=== PATIENT | male | born 1965 | race Caucasian/White ===

== ENCOUNTER 2021-02-22 10:49 | Outpatient (REF) | payer MEDICARE, MEDICAID, SELFPAY ==
[2021-02-22 13:45] LABS: MANUAL DIFF FLAG NO
[2021-02-22 14:09] LABS: Basophils Percent Auto 0.3 % (0-2); Eosinophils Absolute Auto 0.1 X10*3/uL (0.0-0.4); Eosinophils Percent Auto 1.2 % (0-4); Hemoglobin 16.3 g/dl (14.0-18.0); Imm Gran Abs Auto 0.02 X10*3/uL (0.00-0.03); Imm Gran Pct Auto 0.3 % (0.0-0.4); Lymphocytes Absolute Auto 2.2 X10*3/uL (1.2-4.9); Lymphocytes Percent Auto 32.2 % (20-40); Mean Corpuscular Hemoglobin 32.5 pg (27.0-33.0); Mean Corpuscular Volume 95.8 fL (80-98); Mean Platelet Volume 11.4 fL (9.4-12.4); Monocytes Absolute Auto 0.6 X10*3/uL (0.1-1.2); Neutrophils Absolute Auto 3.9 X10*3/uL (2.0-8.3); Platelet Count 202 X10*3/uL (160-400); Red Blood Count 5.01 X10*6/uL (4.60-5.80); Red Cell Distribution Width 11.9 % (11.0-16.0); White Blood Count 6.9 X10*3/uL (4.8-10.8)
[2021-02-22 14:34] LABS: Alanine Aminotransferase 24 U/L (0-40); Albumin Level 4.7 g/dL (3.5-5.0); Alkaline Phosphatase 85 U/L (39-117); Anion Gap 18 (12-20); Aspartate Amino Transferase 19 U/L (5-37); Bilirubin Total 0.7 mg/dL (0.0-1.0); Blood Urea Nitrogen 16 mg/dL (9-16); Calcium 9.1 mg/dL (8.4-10.2); Carbon Dioxide 30 mmol/L (22-29); Chloride 97 mmol/L (96-108); Cholesterol 142 mg/dL; Estimated Glomerular Filt Rate > 60; Glucose Fasting 88 mg/dL (60-99); HDL Cholesterol 46 mg/dL; LDL Cholesterol Calculated 65 mg/dl; Potassium 4.3 mmol/L (3.3-5.1); Sodium 141 mmol/L (135-145); Total Protein 7.8 g/dL (6.5-8.0); Triglycerides 159 mg/dL
== END 2021-02-22 10:50 | disposition home or self-care (01) ==
LOC: HO.HMGCLDS 10:49
PROVIDERS: PCP Internal Medicine; Visit Provider Internal Medicine
DX: I10 Essential (primary) hypertension (principal); E78.00 Pure hypercholesterolemia, unspecified; J45.909 Unspecified asthma, uncomplicated; Z12.5 Encounter for screening for malignant neoplasm of prostate
CPT/HCPCS: 36415; 80053; 80061; 84153; 85025

== ENCOUNTER → 2021-05-13 09:26 | Outpatient (REF) | payer MEDICARE, MEDICAID, SELFPAY ==
--- NOTE | 2021-05-13 09:32 | CA_ITS ---
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 The visually estimated ejection fraction is between 55-60%. - There is mild calcification of the aortic valve. Findings Left Ventricle Normal left ventricular cavity size. There is normal left ventricular wall thickness. The left ventricular systolic function is normal. The visually estimated ejection fraction is between 55-60%. There is no evidence of regional wall motion abnormalities. Diastolic function is normal for age. Right Ventricle Normal right ventricular cavity size and systolic function. Atria Both atria are normal in size. Aortic Valve The aortic valve structure and function is likely normal. There is mild calcification of the aortic valve. There is no aortic valve stenosis. There is no aortic valve regurgitation. Mitral Valve The mitral valve appears normal. There is trace mitral valve regurgitation. There is no mitral valve stenosis. Pulmonic Valve The pulmonic valve was not well visualized. Tricuspid Valve The tricuspid valve was not well visualized. There is trace tricuspid valve regurgitation. The pulmonary artery systolic pressure is normal. Great Vessels The asc aorta and aortic arch are normal in size. Venous The inferior vena cava is normal in size. Unable to assess respiratory variation. Pericardium/Pleural There is no evidence of pericardial effusion. Prior Study Comparison No significant change compared to prior study dated: 01/30/2012. Measurements 2D Linear Measurements IVSd: 0.95 0.6-0.9/0.6-1.0 cm LVIDd: 3.98 3.9-5.3/4.2-5.9 cm LVIDd Index: 2.06 2.4-3.2/2.2-3.1 cm/m2 LVIDs: 2.53 2.0-3.6 cm LVPWd: 0.99 0.7-1.1 cm Ao Root: 3.20 2.1-3.5 cm LA Diam: 3.20 2.7-3.8/3.0-4.0 cm LAIDs Index: 1.66 1.5-2.3 cm/m2 LV Mass: 149.33 67-162/88-224 g LV Mass Index: 77.37 43-95/49-115 g/m2 LVOT Diam: 2.00 3.0+(-)1.3 cm 2D Systolic Function EF 4C: 55.10 >55% EF 2C: 59.10 >55% EF BiP: 55.50 >55% Mitral Valve MV Pk E: 0.96 MV PK A: 0.90 MV Decel Time: 185.00 E/A: 1.10 E'Lateral: 10.80 E'Medial: 10.00 E/E' Med: 9.60 E/E' Lat: 8.90 PHT: 54.00 MVA PHT: 4.07 Decel Hutchinson: 5.19 Aortic Valve AoV Pk Lloyd: 1.41 AoV Mn Lloyd: 0.98 AoV VTI: 0.28 AoV Pk Grad: 8.00 Aov Mn Grad: 4.00 LILIBETH Cont.VTI: 2.07 LVOT LVOT Pk Lloyd: 1.03 LVOT Mn Lloyd: 0.63 LVOT VTI: 0.18 LVOT Pk Grad: 4.00 LVOT Mn Grad: 2.00 LVOT Diam: 2.00 LVOT Area: 3.14 Diastolic Function MV Pk E: 0.96 MV Pk A: 0.90 E/A: 1.10 E'Medial: 10.00 E/E' Med: 9.60 E' Laterial: 10.80 E/E' Lat: 8.90 Tricuspid Valve TR Pk Lloyd: 1.97 TR Pk Grad: 16.00 RA Press: 3.00 RVSP: 19.00 Great Vessels Aorta Ao Root-2D: 3.20 2.0-3.7 cm Ao Asc: 3.00 2.1-3.4 cm Ao Arch: 2.20 Updated in Other Vendor System with Status of Final Richie West MD electronically signed on 05/14/2021 3:25:25 PM with status of Final
== END ==
LOC: HO.CARD 09:26
PROVIDERS: Visit Provider Internal Medicine
DX: I10 Essential (primary) hypertension (principal)
CPT/HCPCS: 93306

== ENCOUNTER 2021-11-03 11:01 | Outpatient (REF) | payer MEDICARE, MEDICAID, SELFPAY ==
[2021-11-03 13:22] LABS: MANUAL DIFF FLAG NO
[2021-11-03 13:32] LABS: Basophils Percent Auto 0.2 % (0-2); Eosinophils Absolute Auto 0.1 X10*3/uL (0.0-0.4); Eosinophils Percent Auto 2.1 % (0-4); Hematocrit 46.7 % (42.0-52.0); Hemoglobin 15.8 g/dl (14.0-18.0); Imm Gran Abs Auto 0.02 X10*3/uL (0.00-0.03); Imm Gran Pct Auto 0.4 % (0.0-0.4); Lymphocytes Absolute Auto 1.5 X10*3/uL (1.2-4.9); Lymphocytes Percent Auto 27.9 % (20-40); Mean Corpuscular HGB Conc 33.8 g/dl (31.0-36.0); Mean Corpuscular Hemoglobin 31.8 pg (27.0-33.0); Mean Platelet Volume 11.3 fL (9.4-12.4); Monocytes Absolute Auto 0.6 X10*3/uL (0.1-1.2); Monocytes Percent Auto 10.8 % (2-11); Neutrophils Absolute Auto 3.1 x10*3/uL (2.0-8.3); Neutrophils Percent Auto 58.6 % (45-73); Platelet Count 214 X10*3/uL (160-400); Red Blood Count 4.97 X10*6/uL (4.60-5.80); White Blood Count 5.2 X10*3/uL (4.8-10.8)
[2021-11-03 13:52] LABS: Alanine Aminotransferase 28 U/L (0-40); Albumin Level 4.5 g/dL (3.5-5.0); Alkaline Phosphatase 81 U/L (39-117); Anion Gap 14 (12-20); Aspartate Amino Transferase 21 U/L (5-37); Bilirubin Total 0.6 mg/dL (0.0-1.0); Blood Urea Nitrogen 17 mg/dL (9-16); C Reactive Protein 0.32 mg/dL (< or = 0.50); Calcium 9.7 mg/dL (8.4-10.2); Carbon Dioxide 29 mmol/L (22-29); Chloride 99 mmol/L (96-108); Estimated Glomerular Filt Rate > 60; Glucose Fasting 97 mg/dL (60-99); Lipase 36 U/L (8-78); Potassium 4.9 mmol/L (3.3-5.1); Sodium 137 mmol/L (135-145); Total Protein 7.5 g/dL (6.5-8.0)
[2021-11-09 16:15] LABS: Transglutaminase Ab IgG <1.0 U/mL; Transglutaminase IgA <1.0 U/mL
== END 2021-11-03 11:02 | disposition home or self-care (01) ==
LOC: HO.10HDL 11:01
PROVIDERS: Visit Provider Internal Medicine
DX: R10.9 Unspecified abdominal pain (principal); R19.7 Diarrhea, unspecified; I10 Essential (primary) hypertension
CPT/HCPCS: 36415; 80053; 83516; 83690; 85025; 86140

== ENCOUNTER → 2021-12-23 11:37 | Outpatient (BNVA) | payer MEDICARE, MEDICAID, SELFPAY | PROVIDERS: PCP Internal Medicine; Referring Provider Internal Medicine; Visit Provider Nurse Practitioner | DX: K58.9 Irritable bowel syndrome, unspecified (principal); K21.9 Gastro-esophageal reflux disease without esophagitis; E66.01 Morbid (severe) obesity due to excess calories; Z68.32 Body mass index [BMI] 32.0-32.9, adult | CPT/HCPCS: 99202 ==

== ENCOUNTER → 2022-01-14 12:14 | Outpatient (BNVA) | payer MEDICARE, MEDICAID, SELFPAY | PROVIDERS: PCP Internal Medicine; Referring Provider Internal Medicine; Visit Provider Nurse Practitioner | DX: Z12.11 Encounter for screening for malignant neoplasm of colon (principal); K21.9 Gastro-esophageal reflux disease without esophagitis; K58.1 Irritable bowel syndrome with constipation; R62.50 Unspecified lack of expected normal physiological development in childhood | CPT/HCPCS: 99212 ==

== ENCOUNTER → 2022-02-18 11:18 | Outpatient (BNVA) | payer MEDICARE, MEDICAID, SELFPAY | PROVIDERS: PCP Internal Medicine; Referring Provider Internal Medicine; Visit Provider Nurse Practitioner | DX: K58.1 Irritable bowel syndrome with constipation (principal); K21.9 Gastro-esophageal reflux disease without esophagitis; E66.01 Morbid (severe) obesity due to excess calories; R62.50 Unspecified lack of expected normal physiological development in childhood; Z68.29 Body mass index [BMI] 29.0-29.9, adult | CPT/HCPCS: 99212 ==

== ENCOUNTER → 2022-04-01 10:37 | Outpatient (BNVA) | payer MEDICARE, MEDICAID, SELFPAY | PROVIDERS: PCP Internal Medicine; Referring Provider Internal Medicine; Visit Provider Nurse Practitioner | DX: K58.1 Irritable bowel syndrome with constipation (principal); K21.9 Gastro-esophageal reflux disease without esophagitis; E66.01 Morbid (severe) obesity due to excess calories; Z68.29 Body mass index [BMI] 29.0-29.9, adult | CPT/HCPCS: 99212 ==

== ENCOUNTER → 2022-05-12 14:36 | Outpatient (BNVA) | payer MEDICARE, MEDICAID, SELFPAY | PROVIDERS: PCP Internal Medicine; Visit Provider Nurse Practitioner | DX: K58.1 Irritable bowel syndrome with constipation (principal); E66.01 Morbid (severe) obesity due to excess calories; K21.9 Gastro-esophageal reflux disease without esophagitis | CPT/HCPCS: 99212 ==

== ENCOUNTER 2022-05-31 08:32 | Outpatient (REF) | payer MEDICARE, MEDICAID, SELFPAY ==
[2022-05-31 10:24] LABS: MANUAL DIFF FLAG NO
[2022-05-31 10:29] LABS: Basophils Percent Auto 0.3 % (0-2); Eosinophils Absolute Auto 0.1 X10*3/uL (0.0-0.4); Eosinophils Percent Auto 1.3 % (0-4); Hemoglobin 16.6 g/dl (14.0-18.0); Imm Gran Abs Auto 0.01 X10*3/uL (0.00-0.03); Imm Gran Pct Auto 0.2 % (0.0-0.4); Lymphocytes Absolute Auto 1.7 X10*3/uL (1.2-4.9); Lymphocytes Percent Auto 27.6 % (20-40); Mean Corpuscular HGB Conc 33.9 g/dl (31.0-36.0); Mean Corpuscular Hemoglobin 31.7 pg (27.0-33.0); Mean Corpuscular Volume 93.5 fL (80.0-98.0); Mean Platelet Volume 12.1 fL (9.4-12.4); Monocytes Absolute Auto 0.5 X10*3/uL (0.1-1.2); Monocytes Percent Auto 8.4 % (2-11); Neutrophils Absolute Auto 3.7 x10*3/uL (2.0-8.3); Neutrophils Percent Auto 62.2 % (45-73); Platelet Count 185 X10*3/uL (160-400); Red Blood Count 5.24 X10*6/uL (4.60-5.80); Red Cell Distribution Width 11.9 % (11.0-16.0)
[2022-05-31 10:50] LABS: Alanine Aminotransferase 17 U/L (0-40); Albumin Level 4.6 g/dL (3.5-5.0); Alkaline Phosphatase 133 U/L (39-117); Anion Gap 15 (12-20); Aspartate Amino Transferase 17 U/L (5-37); Bilirubin Total 0.5 mg/dL (0.0-1.0); Blood Urea Nitrogen 9 mg/dL (9-16); Calcium 9.1 mg/dL (8.4-10.2); Carbon Dioxide 28 mmol/L (22-29); Chloride 100 mmol/L (96-108); Cholesterol 142 mg/dL; Estimated Glomerular Filt Rate > 60; Glucose Fasting 92 mg/dL (60-99); HDL Cholesterol 44 mg/dL; LDL Cholesterol Calculated 68 mg/dl; Potassium 4.5 mmol/L (3.3-5.1); Sodium 138 mmol/L (135-145); Total Protein 7.7 g/dL (6.5-8.0); Triglycerides 153 mg/dL
== END 2022-05-31 08:33 | disposition home or self-care (01) ==
LOC: HO.10HDL 08:32
PROVIDERS: Visit Provider Internal Medicine
DX: Z12.5 Encounter for screening for malignant neoplasm of prostate (principal); K21.9 Gastro-esophageal reflux disease without esophagitis; E78.00 Pure hypercholesterolemia, unspecified; I10 Essential (primary) hypertension; K58.9 Irritable bowel syndrome, unspecified
CPT/HCPCS: 36415; 80053; 80061; 84153; 85025

== ENCOUNTER → 2022-06-21 14:26 | Outpatient (BNVA) | payer MEDICARE, MEDICAID, SELFPAY | PROVIDERS: PCP Internal Medicine; Visit Provider Nurse Practitioner | DX: K58.0 Irritable bowel syndrome with diarrhea (principal); K21.9 Gastro-esophageal reflux disease without esophagitis | CPT/HCPCS: 99212 ==

== ENCOUNTER → 2022-07-12 11:43 | Outpatient (BNVA) | payer MEDICARE, MEDICAID, SELFPAY | PROVIDERS: PCP Internal Medicine; Visit Provider Nurse Practitioner | DX: K58.0 Irritable bowel syndrome with diarrhea (principal); K21.9 Gastro-esophageal reflux disease without esophagitis | CPT/HCPCS: 99212 ==

== ENCOUNTER → 2022-08-05 13:29 | Outpatient (BNVA) | payer MEDICARE, MEDICAID, SELFPAY | PROVIDERS: PCP Internal Medicine; Visit Provider Nurse Practitioner | DX: K58.0 Irritable bowel syndrome with diarrhea (principal); K21.9 Gastro-esophageal reflux disease without esophagitis; R62.50 Unspecified lack of expected normal physiological development in childhood; E66.01 Morbid (severe) obesity due to excess calories; Z68.25 Body mass index [BMI] 25.0-25.9, adult | CPT/HCPCS: 99212 ==

== ENCOUNTER 2022-09-12 16:22 | Outpatient (REF) | payer MEDICARE, MEDICAID, SELFPAY ==
--- NOTE | ~2022-09-12 | XR_ITS ---
EXAMINATION: XR LUMBOSACRAL SPINE CLINICAL INFORMATION: Low back pain and sciatica COMPARISON: None TECHNIQUE: Three views of the lumbosacral spine. FINDINGS: There is mild curvature of the lower lumbar spine to the left. Bone alignment is otherwise normal. No fracture or dislocation. There is multilevel degenerative disc disease, greatest at L3-L4 and L4-L5. There is multilevel spondylosis greatest at L2-L3 and L4-L5. There is lower lumbar spine facet arthritis. XR/XR lumbar spine 2-3V IMPRESSION: Degenerative changes.
[2022-09-12 16:44] LABS: MANUAL DIFF FLAG NO
[2022-09-12 16:53] LABS: Basophils Percent Auto 0.4 % (0-2); Eosinophils Absolute Auto 0.1 X10*3/uL (0.0-0.4); Hematocrit 49.1 % (42.0-52.0); Hemoglobin 17.5 g/dl (14.0-18.0); Imm Gran Abs Auto 0.01 X10*3/uL (0.00-0.03); Imm Gran Pct Auto 0.1 % (0.0-0.4); Lymphocytes Absolute Auto 1.7 X10*3/uL (1.2-4.9); Lymphocytes Percent Auto 23.4 % (20-40); Mean Corpuscular HGB Conc 35.6 g/dl (31.0-36.0); Mean Corpuscular Hemoglobin 32.9 pg (27.0-33.0); Mean Corpuscular Volume 92.3 fL (80.0-98.0); Mean Platelet Volume 10.4 fL (9.4-12.4); Monocytes Absolute Auto 0.6 X10*3/uL (0.1-1.2); Monocytes Percent Auto 8.1 % (2-11); Neutrophils Absolute Auto 4.8 x10*3/uL (2.0-8.3); Platelet Count 247 X10*3/uL (160-400); Red Blood Count 5.32 X10*6/uL (4.60-5.80); White Blood Count 7.1 X10*3/uL (4.8-10.8)
[2022-09-12 17:18] LABS: Alanine Aminotransferase 13 U/L (0-40); Albumin Level 4.9 g/dL (3.5-5.0); Alkaline Phosphatase 119 U/L (39-117); Anion Gap 19 (12-20); Aspartate Amino Transferase 18 U/L (5-37); Bilirubin Total 0.4 mg/dL (0.0-1.0); Blood Urea Nitrogen 14 mg/dL (9-16); C Reactive Protein 0.24 mg/dL (< or = 0.50); Calcium 9.6 mg/dL (8.4-10.2); Carbon Dioxide 28 mmol/L (22-29); Chloride 97 mmol/L (96-108); Estimated Glomerular Filt Rate 60; Glucose Random 118 mg/dL (60-115); Potassium 4.3 mmol/L (3.3-5.1); Sodium 140 mmol/L (135-145)
[2022-09-12 17:39] LABS: Free T4 (Free Thyroxine) 0.94 ng/dL (0.71-1.85); Thyroid Stimulating Hormone 1.96 uIU/mL (0.32-4.0)
[2022-09-12 17:43] LABS: Vitamin B12 632 pg/mL (200-900)
== END 2022-09-12 16:23 | disposition home or self-care (01) ==
LOC: HO.LAB 16:22
PROVIDERS: PCP Internal Medicine; Visit Provider Internal Medicine
DX: I10 Essential (primary) hypertension (principal); J45.909 Unspecified asthma, uncomplicated; K21.9 Gastro-esophageal reflux disease without esophagitis; R53.1 Weakness
CPT/HCPCS: 36415; 72100; 80053; 82550; 82607; 84439; 84443; 85025; 86140

== ENCOUNTER → 2022-09-13 14:39 | Outpatient (BNVA) | payer MEDICARE, MEDICAID, SELFPAY | PROVIDERS: PCP Internal Medicine; Visit Provider Nurse Practitioner | DX: K58.0 Irritable bowel syndrome with diarrhea (principal); K21.9 Gastro-esophageal reflux disease without esophagitis; R62.50 Unspecified lack of expected normal physiological development in childhood | CPT/HCPCS: 99212 ==

== ENCOUNTER → 2022-11-09 13:57 | Outpatient (BNVA) | payer MEDICARE, MEDICAID, SELFPAY | PROVIDERS: PCP Internal Medicine; Visit Provider Nurse Practitioner | DX: K58.0 Irritable bowel syndrome with diarrhea (principal); K21.9 Gastro-esophageal reflux disease without esophagitis; R62.50 Unspecified lack of expected normal physiological development in childhood; Z79.899 Other long term (current) drug therapy | CPT/HCPCS: 99212 ==

== ENCOUNTER 2022-12-27 10:48 | Outpatient (REF) | payer MEDICARE, MEDICAID, SELFPAY ==
[2022-12-27 14:06] LABS: Estimated Average Glucose 108 mg/dL; Hemoglobin A1C 151.1896 umol/L; Hemoglobin A1c % 5.4 %
[2022-12-27 14:31] LABS: Anion Gap 16 (12-20); Blood Urea Nitrogen 12 mg/dL (9-16); Calcium 9.1 mg/dL (8.4-10.2); Carbon Dioxide 28 mmol/L (22-29); Chloride 98 mmol/L (96-108); Estimated Glomerular Filt Rate > 60; Glucose Random 92 mg/dL (60-115); Potassium 4.2 mmol/L (3.3-5.1); Sodium 138 mmol/L (135-145)
[2022-12-27 14:40] LABS: Free T4 (Free Thyroxine) 0.96 ng/dL (0.71-1.85)
== END 2022-12-27 10:49 | disposition home or self-care (01) ==
LOC: HO.10HDL 10:48
PROVIDERS: Visit Provider Internal Medicine
DX: I12.9 Hypertensive chronic kidney disease with stage 1 through stage 4 chronic kidney disease, or unspecified chronic kidney disease (principal); N18.9 Chronic kidney disease, unspecified; R73.03 Prediabetes; R25.1 Tremor, unspecified
CPT/HCPCS: 36415; 80048; 82550; 83036; 84439

== ENCOUNTER → 2023-02-09 14:29 | Outpatient (BNVA) | payer MEDICARE, MEDICAID, SELFPAY | PROVIDERS: PCP Internal Medicine; Visit Provider Nurse Practitioner | DX: K58.0 Irritable bowel syndrome with diarrhea (principal); K21.9 Gastro-esophageal reflux disease without esophagitis; Z79.899 Other long term (current) drug therapy | CPT/HCPCS: 99212 ==

== ENCOUNTER 2023-02-14 10:27 | Outpatient (REF) | payer MEDICARE, MEDICAID, SELFPAY ==
[2023-02-14 14:33] LABS: Folate 17.8 ng/mL (> or = 4.0); Thyroid Stimulating Hormone 1.73 uIU/mL (0.32-4.0); Vitamin B12 550 pg/mL (200-900)
[2023-02-17 15:18] LABS: Ceruloplasmin 20 mg/dL (18-36)
== END 2023-02-14 10:28 | disposition home or self-care (01) ==
LOC: HO.10HDL 10:27
PROVIDERS: Visit Provider Internal Medicine
DX: R25.1 Tremor, unspecified (principal)
CPT/HCPCS: 36415; 82390; 82607; 82746; 84443

== ENCOUNTER → 2023-03-09 14:58 | Outpatient (BNVA) | payer MEDICARE, MEDICAID, SELFPAY | PROVIDERS: PCP Internal Medicine; Visit Provider Nurse Practitioner | DX: G25.0 Essential tremor (principal); R62.50 Unspecified lack of expected normal physiological development in childhood; K58.0 Irritable bowel syndrome with diarrhea; K21.9 Gastro-esophageal reflux disease without esophagitis; E66.01 Morbid (severe) obesity due to excess calories; Z68.28 Body mass index [BMI] 28.0-28.9, adult | CPT/HCPCS: 99212 ==

== ENCOUNTER 2024-05-08 11:54 | Outpatient (REF) | payer MEDICARE, MEDICAID, SELFPAY ==
[2024-05-08 13:10] LABS: MANUAL DIFF FLAG NO
[2024-05-08 13:38] LABS: Basophils Percent Auto 0.4 % (0-2); Eosinophils Percent Auto 0.3 % (0-4); Hematocrit 45.9 % (42.0-52.0); Imm Gran Abs Auto 0.03 X10*3/uL (0.00-0.03); Imm Gran Pct Auto 0.4 % (0.0-0.4); Lymphocytes Absolute Auto 1.4 X10*3/uL (1.2-4.9); Lymphocytes Percent Auto 18.3 % (20-40); Mean Corpuscular HGB Conc 34.9 g/dl (31.0-36.0); Mean Corpuscular Hemoglobin 32.7 pg (27.0-33.0); Mean Corpuscular Volume 93.7 fL (80.0-98.0); Monocytes Absolute Auto 0.7 X10*3/uL (0.1-1.2); Monocytes Percent Auto 9.5 % (2-11); Neutrophils Absolute Auto 5.5 x10*3/uL (2.0-8.3); Neutrophils Percent Auto 71.1 % (45-73); Platelet Count 197 X10*3/uL (160-400); Red Cell Distribution Width 11.9 % (11.0-16.0); White Blood Count 7.8 X10*3/uL (4.8-10.8)
[2024-05-08 14:05] LABS: Anion Gap 14 (12-20); Blood Urea Nitrogen 18 mg/dL (9-16); C Reactive Protein 0.11 mg/dL (< or = 0.50); Calcium 9.6 mg/dL (8.4-10.2); Carbon Dioxide 28 mmol/L (22-29); Chloride 100 mmol/L (96-108); Estimated Glomerular Filt Rate > 60; Glucose Random 84 mg/dL (60-115); Magnesium 1.9 mg/dL (1.6-2.6); Potassium 4.7 mmol/L (3.3-5.1); Sodium 137 mmol/L (135-145)
[2024-05-08 14:10] LABS: Free T4 (Free Thyroxine) 0.95 ng/dL (0.71-1.85); Thyroid Stimulating Hormone 1.04 uIU/mL (0.32-4.0)
== END 2024-05-08 11:55 | disposition home or self-care (01) ==
LOC: HO.10HDL 11:54
PROVIDERS: Visit Provider Internal Medicine
DX: R00.2 Palpitations (principal); J45.909 Unspecified asthma, uncomplicated
CPT/HCPCS: 36415; 80048; 83735; 84439; 84443; 85025; 86140

== ENCOUNTER → 2024-05-15 09:10 | Outpatient (REF) | payer MEDICARE, MEDICAID, SELFPAY ==
--- NOTE | 2024-05-15 09:14 | HM_ITS ---
* Total monitoring time 3 days. * Underlying rhythm is sinus with an average rate of 89/Min. About 20% of the time, rate > 100/Min. * Frequent supraventricular ectopy with a burden of about 2%. * Rare ventricular ectopy. * No significant pauses or any high-grade AV blocks. * No patient markers or diary events. MTDD
== END ==
LOC: HO.CARD 09:10
PROVIDERS: PCP Internal Medicine; Visit Provider Internal Medicine
DX: R00.2 Palpitations (principal)
CPT/HCPCS: 93242

== ENCOUNTER → 2024-05-15 09:14 | Outpatient (BNV) | payer MEDICARE, MEDICAID, SELFPAY | PROVIDERS: PCP Internal Medicine; Visit Provider Internal Medicine | DX: I47.10 Supraventricular tachycardia, unspecified (principal) | CPT/HCPCS: 93244 ==

== ENCOUNTER 2024-08-23 09:24 | Outpatient (REF) | payer MEDICARE, MEDICAID, SELFPAY ==
[2024-08-23 09:56] LABS: MANUAL DIFF FLAG NO
[2024-08-23 10:20] LABS: Basophils Percent Auto 0.6 % (0-2); Eosinophils Absolute Auto 0.1 X10*3/uL (0.0-0.4); Eosinophils Percent Auto 1.3 % (0-4); Hematocrit 48.3 % (42.0-52.0); Hemoglobin 16.7 g/dl (14.0-18.0); Imm Gran Abs Auto 0.02 X10*3/uL (0.00-0.03); Imm Gran Pct Auto 0.4 % (0.0-0.4); Lymphocytes Absolute Auto 1.4 X10*3/uL (1.2-4.9); Lymphocytes Percent Auto 26.3 % (20-40); Mean Corpuscular HGB Conc 34.6 g/dl (31.0-36.0); Mean Corpuscular Hemoglobin 32.6 pg (27.0-33.0); Mean Corpuscular Volume 94.3 fL (80.0-98.0); Mean Platelet Volume 10.6 fL (9.4-12.4); Monocytes Absolute Auto 0.5 X10*3/uL (0.1-1.2); Monocytes Percent Auto 9.4 % (2-11); Neutrophils Absolute Auto 3.2 x10*3/uL (2.0-8.3); Platelet Count 212 X10*3/uL (160-400); Red Blood Count 5.12 X10*6/uL (4.60-5.80); White Blood Count 5.2 X10*3/uL (4.8-10.8)
[2024-08-23 11:31] LABS: Alanine Aminotransferase 17 U/L (0-40); Albumin Level 4.6 g/dL (3.5-5.0); Alkaline Phosphatase 92 U/L (39-117); Anion Gap 13 (12-20); Aspartate Amino Transferase 17 U/L (5-37); Bilirubin Total 0.7 mg/dL (0.0-1.0); Blood Urea Nitrogen 13 mg/dL (9-16); Calcium 9.5 mg/dL (8.4-10.2); Carbon Dioxide 30 mmol/L (22-29); Chloride 101 mmol/L (96-108); Cholesterol 201 mg/dL (<200); Estimated Glomerular Filt Rate > 60; Glucose Fasting 89 mg/dL (60-99); HDL Cholesterol 43 mg/dL (>40); LDL Cholesterol Calculated 104 mg/dL (<100); Potassium 4.8 mmol/L (3.3-5.1); Sodium 139 mmol/L (135-145); Total Protein 7.7 g/dL (6.5-8.0); Triglycerides 271 mg/dL (<150)
[2024-08-23 12:27] LABS: Prostate Specific Antigen 0.41 ng/mL (<0.05-4.0)
== END 2024-08-23 09:25 | disposition home or self-care (01) ==
LOC: HO.LAB 09:24
PROVIDERS: PCP Internal Medicine; Visit Provider Internal Medicine
DX: I10 Essential (primary) hypertension (principal); E78.00 Pure hypercholesterolemia, unspecified; Z12.5 Encounter for screening for malignant neoplasm of prostate; K21.9 Gastro-esophageal reflux disease without esophagitis; K63.5 Polyp of colon
CPT/HCPCS: 36415; 80053; 80061; 84153; 85025

== ENCOUNTER 2025-02-10 10:41 | Outpatient (AMB) | payer MEDICARE, MEDICAID, SELFPAY ==
--- NOTE | 2025-02-10 10:41 | A.OFFPC_ITS ---
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: No Accompanied by: Mother Allergies butalbital [From FIORINAL] Allergy (Unknown, Verified 02/10/25 10:42) SYNCOPE loratadine [From CLARITIN-D] Allergy (Unknown, Verified 02/10/25 10:42) SWELLING pseudoephedrine [From CLARITIN-D] Allergy (Unknown, Verified 02/10/25 10:42) SWELLING fiorinol Allergy (Unknown, Uncoded 02/10/25 10:42) Hives From SUDAFED Allergy (Unknown, Uncoded 02/10/25 10:42) HEART PALPITATIONS Sudafed OM Sinus Cold Allergy (Unknown, Uncoded 02/10/25 10:42) Anxiety Tobacco use date assessed: 02/10/25 Dental Screening Dental Screen Date: 02/10/25 Did you have a dental visit in the last 12 months?: Yes Did you have a dental problem in the last 6 months where you did not have access to dental care?: No PFSH Medical History IBS (irritable bowel syndrome) Surgical History H/O knee surgery H/O eye surgery Hx of tonsillectomy Family History Mother HTN (hypertension) Social History Household Members: None Housing: Apartment Alcohol intake: never Patient Tobacco Use Status: Never used Tobacco service: No Current occupational status: disabled Cognitive needs: Yes (special needs) Hearing needs: No Vision needs: Yes (rx glasses) Questionnaire PHQ-9 Over the last 2 weeks, how often have you been bothered by any of the following problems? 1. Little interest or pleasure in doing things: not at all 2. Feeling down, depressed, or hopeless: not at all 3. Trouble falling or staying asleep, or sleeping too much: not at all 4. Feeling tired or having little energy: not at all 5. Poor appetite or overeating: not at all 6. Feeling bad about yourself - or that you are a failure or have let yourself or your family down: not at all 7. Trouble concentrating on things, such as reading the newspaper or watching television: not at all 8. Moving or speaking so slowly that other people could have noticed. Or the opposite - being so fidgety or restless that you have been moving around a lot more than usual: not at all 9. Thoughts that you would be better off or of hurting yourself in some way: not at all Total score: 0 Source: Developed by Drs. Morris Marquez, Debi Casey, Israel Escobar and colleagues, with an educational tim from [employer]. Thrive Questionnaire Date Thrive assessed: 02/10/25 I am a: Patient What is your living situation today?: I have a steady place to live Within the past 12 months, did the food you bought not last and you didn't have the money to get more?: Never true Within the past 12 months, did you worry whether your food would run out before you got money to buy more?: Never true Do you have trouble paying for medicines?: No Do you have trouble getting transportation to medical appointments?: No Do you have trouble paying your heating and electricity bill?: No Do you have trouble taking care of your child, family member or friend?: No Do you have trouble with day-to-day activities such as bathing, preparing meals, shopping, managing finances, etc.?: No Are you currently unemployed and looking for a job?: No Are you interested in more education?: No THRIVE Score: 0 AUDIT C Alcohol Use Questionnaire (AUDIT-C) 1. How often do you have a drink containing alcohol?: Never 3. How often do you have six or more drinks on one occasion?: Never Total Score: 0 ADONAY-7 AMB Questionnaire ADONAY-7 Date ADONAY - 7 assessed: 02/10/25 Feeling nervous, anxious, or on edge: 0 = Not at all Not being able to stop or control worryin = Not at all Worrying too much about different things: 0 = Not at all Trouble relaxin = Not at all Being so restless that it is hard to sit still: 0 = Not at all Becoming easily annoyed or irritable: 0 = Not at all Feeling afraid as if something awful might happen: 0 = Not at all Total ADONAY-7 score (0-4 normal; 5-9 mild; 10-14 moderate; 15-21 severe): 0 Source: Developed by Drs. Morris Marquez, Debi Casey, Israel Escobar and colleagues, with an educational tim from [employer]. Physical exam (Primary Care) Vital Signs: Last Vital Signs Temp 97.6 F 02/10/25 10:44 Pulse 94 02/10/25 10:44 Resp 14 02/10/25 10:44 BP 132/80 02/10/25 10:44 Pulse Ox 98 02/10/25 10:44 Oxygen Delivery Method Room Air 02/10/25 10:44 BMI result Body Mass Index 31.2 Tobacco/Smoking Status: Tobacco use Status Tobacco use date assessed 02/10/25 02/10/25 10:44 Patient Tobacco Use Status Never used Tobacco 02/10/25 10:44 PHQ-9: PHQ-9 Score PHQ-9: Total score 0 02/10/25 10:44 Thrive Assessment: Date of Thrive Assessment Date Thrive assessed 02/10/25 02/10/25 10:44 Coding Level of Care Code Est Pt Level 4 (66062) Complex EM visit Add On G2211 Diagnoses HTN (hypertension), benign I10 GERD (gastroesophageal reflux disease) K21.9 Developmental delay, mild R62.50 Assessment & Plan Assessment & Plan (1) HTN (hypertension), benign: Code(s): I10 - Essential (primary) hypertension Category: Medical Plan: BP in range. Continue Lisinopril at same dosage. (2) GERD (gastroesophageal reflux disease): Code(s): K21.9 - Gastro-esophageal reflux disease without esophagitis Category: Medical Plan: Continue current medications (3) Developmental delay, mild: Code(s): R62.50 - Unspecified lack of expected normal physiological development in childhood Category: Medical Plan: Condition is stable Plan History of Present Illness The patient is a 59-year-old male presenting for a medication refill for essential hypertension, specifically lisinopril. His pharmacy experienced issues sending notifications for a refill to his previous physician, which has been unresolved until today's visit. There are no noted symptoms indicating poorly controlled hypertension, such as headaches or vision changes. The patient also presents with a need to assess his immunization status due to potential insufficiencies in his measles vaccination, supported by CDC guidelines which indicate vaccinations from 1390-5101 might be ineffective. This will be evaluated using serology. There is also a history of tremors, though there is no further elucidation of the frequency, severity, or impact on daily activities within this visit. 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 - Living Situation: Lives independently since 1980. - Smoking: Denies any smoking history. - Family: Second among five siblings who are in good health. - Function: She reports no issues in mobility or activities. Review of Systems - Neurological: Reports tremors - Respiratory: Denies smoking Physical Exam General: Appearance normal, both eyes and all related structures Nutritional Appearance: Well nourished Orientation/consciousness: Patient oriented x3 Limitations: No limitations Head: Normal to inspection Neck: Normal visual inspection Chest: Normal palpation of entire chest wall Respiratory: Normal respiratory effort Neurology: Patient oriented x3, has tremors Results Plan The management plan involves providing a lisinopril refill to ensure his essabraham tial hypertension is adequately controlled. The patient's licensing for measles, mumps, and rubella vaccination will be evaluated through blood work, and steps for a booster shot will be considered based on the results. The patient will continue independent living and a stable medication regimen, with no smoking history aiding in managing his hypertension. Patient was informed and verbally consented to the use of an ambient scribe for clinic note documentation during this visit. Discussion Notes I discussed with the patient and his mother the importance of maintaining adherence to his hypertension medication. The lisinopril prescription will be refilled today to resolve any interruptions in his care. To assess his immunization status, I explained the need for a blood test to determine immunity to measles, mumps, and rubella due to CDC guidelines about potential vaccination ineffectiveness. They understood that the results would inform the need for any further action regarding vaccinations. Follow-up instructions after receiving blood work results were provided. Patient Instructions - Ensure lisinopril prescription is refilled today. - Proceed to have blood drawn for MMR immunity testing. - Await call for results and further instructions regarding vaccinations. - Attend follow-up visit in six months. - Continue current living arrangements and work, maintaining independence. Orders: Orders Rubeola IgG (Measles) Today Z11.9 - Encounter for screening for infectious and parasitic diseases, unspecified Mumps Virus IgG Antibody Today Z11.9 - Encounter for screening for infectious and parasitic diseases, unspecified Complete Blood Count no Diff Today I10 - Essential (primary) hypertension, K21.9 - Gastro-esophageal reflux disease without esophagitis Basic Metabolic Panel Today I10 - Essential (primary) hypertension, K21.9 - Gastro-esophageal reflux disease without esophagitis Lipid Panel Today I10 - Essential (primary) hypertension, K21.9 - Gastro-e sophageal reflux disease without esophagitis Liver Panel Today I10 - Essential (primary) hypertension, K21.9 - Gastro- esophageal reflux disease without esophagitis UA and rflx microscopic Today I10 - Essential (primary) hypertension, K21.9 - Gastro-esophageal reflux disease without esophagitis Thyroid Stimulating Hormone Today I10 - Essential (primary) hypertension, K21.9 - Gastro-esophageal reflux disease without esophagitis Rubella IgG Antibody Today Z11.9 - Encounter for screening for infectious and parasitic diseases, unspecified
[2025-02-10 10:44] VITALS: BP 132/80; PULSE 94; RESP 14; TEMP 36.4; O2SAT 98; BMI 31.2
--- OUTSIDE RECORDS SUMMARY | 2025-02-10 12:12 | XMS_ITS ---
Author Organization [facility] Care Team Providers Care Application Developer Manager Name Role Phone Shay Carpio Unavailable Unavailable Stefano Zelaya Unavailable Unavailable Janeen Landrum Unavailable Unavailable Allergies and adverse reactions Code CodeSystem Substance Reaction Severity StartDate Concern Status 8896 RXNORM Sudafed Unknown 11/13/2023 active 8896 RXNORM Pseudoephedrine Unknown 11/13/2023 activ e Fiorinal Unknown 11/13/[id number] Eggs Unknown 11/13/2023 active Care Team Name Role Address Phone Organization Julien Carpio [address], [address], [place], [address], [place] (Office): : [facility] 11/13/2023 - 12/06/2023 Stefano Zelaya Attending Physician [address] [facility] [facility] [address], [place], [address], [place] (Office): : [facility] 11/13/2023 - 12/06/2023 Janeen Landrum Attending Physician [address] [facility] [address], [place], [address], [place] (Office): : [facility] 11/13/2023 - 12/06/2023 Immunizations Immunization Status Vaccine Details Vaccine Code CodeSystem Alberto e Notes (COVID-19) [id number] Updated Moderna Vaccine completed SARS-COV-2 (COVID-19) vaccine, mRNA, spike protein, LNP, preservative free, 50 mcg/0.5 mL dose 312 CVX created date: 12/01/2023 administered date: 09/08/2023 (COVID-19) Moderna Original Primary Dose Vaccine 1 of 2 completed SARS-COV-2 (COVID-19) vaccine, mRNA, spike protein, LNP, preservative free, 100 mcg/0.5mL dose or 50 mcg/0.25mL dose 207 CVX created date: 12/01/2023 administered date: 01/28/2021 (COVID-19) Moderna Original Booster Vaccine completed SARS-COV-2 (COVID-19) vaccine, mRNA, spike protein, LNP, preservative free, 100 mcg/0.5mL dose or 50 mcg/0.25mL dose 207 CVX created date: 12/01/2023 administered date: 04/12/2022 (COVID-19) Moderna Bivalent Vaccine completed SARS-COV-2 (COVID-19) vaccine, mRNA, spike protein, LNP, bivalent, preservative free, 50 mcg/0.5 mL or 25 mcg/0.25 mL dose 229 CVX created date: 12/01/2023 administered date: 09/27/2022 (COVID-19) Moderna Original Primary Dose Vaccine 2 of 2 completed SARS-COV-2 (COVID-19) vaccine, mRNA, spike protein, LNP, preservative free, 100 mcg/0.5mL dose or 50 mcg/0.25mL dose 207 CVX created date: 12/01/2023 administered date: 10/04/2021 Mental Status Section Date Assessment Total Score Description 12/06/2023 BIMS 11 moderate cognit karol impairment CAM 0 No delirium ind icated 11/17/2023 BIMS 11 moderate cognit karol impairment CAM 0 No delirium ind icated Problems Problem # Description Date of onset Resolved Date Code CodeSystem Concern Status 1 COGNITIVE COMMUNICATION DEFICIT 11/13/[address] active 2 DIZZINESS AND GIDDINESS 11/13/[address] active 3 DYSPHAGIA, OROPHARYNGEAL PHASE 11/13/[address] active 4 ESSENTIAL (PRIMARY) HYPERTENSION 11/13/[address] active 5 ESSENTIAL TREMOR 11/13/[address] active 6 GASTRO-ESOPHAGEAL REFLUX DISEASE WITHOUT ESOPHAGITIS 11/13/[address] active 7 GENERALIZED ANXIETY DISORDER 11/13/[address] active 8 MUSCLE WASTING AND ATROPHY, NOT ELSEWHERE CLASSIFIED, MULTIPLE SITES 11/13/[address] active 9 OTHER ASTHMA 11/13/[address] acti ve 10 PARKINSON'S DISEASE WITHOUT DYSKINESIA, WITHOUT MENTION OF FLUCTUATIONS 11/13/[address] active 11 UNSPECIFIED ABNORMALITIES OF GAIT AND MOBILITY 11/13/[address] active 12 UNSPECIFIED FALL, SUBSEQUENT ENCOUNTER 11/13/[address] active 13 UNSPECIFIED INTELLECTUAL DISABILITIES 11/13/[address] active 14 UNSPECIFIED LACK OF COORDINATION 11/13/[address] active Reason for Referral No Reasons for Referral Entered Social History Social History Observation Description Start Date End Date Code Code System Current Smoking Status Tobacco smoking consumption unknown 929724255 SNOMED CT Sex Assigned At Male 1965 84844-5 [facility] Vital Signs Code Code System Vitals Name Values and Units Timing Information 9279-1 [facility] Respiratory Rate Value=18.0 Units=/m in 12/06/2023 8462-4 [facility] Blood Pressure-Diastolic Value=82 Un its=mmHg 12/06/2023 8480-6 [facility] Blood Pressure-Systolic Jhbto=785 Un its=mmHg 12/06/2023 8310-5 [facility] Body Temperature Value=98.1 Units=?? F 12/06/2023 8867[facility]4 [facility] Heart rate Value=97.0 Units=/min 08/2024 81941-8 [facility] O2 % BldC Oximetry Value=96.0 Units= % 12/06/2023 89919-0 [facility] Pain Level Value=0.0 12/06/2023 83950-8 [facility] Weight Xtuda=306.6 Units=Lbs 06/2024 8302-2 LOINC Height Value=62.0 Units=Inches 11/14/2023
--- OUTSIDE RECORDS SUMMARY | 2025-02-10 12:12 | XMS_ITS | Clinical Summary ---
Author Organization [facility] ity Address [address] [place] [address] Care Team Providers Care Corporate Director Of Pharmacy Name Role Phone Unavailable Primary Care Provider Unavailabl e Social History Tobacco Use Types Packs/Day Years Used Date Smoking Tobacco: Never Assessed Sex and Gender Information Value Date Recorded Sex Assigned at Not on file Legal Sex Male 1:40 AM EST Gender Identity Not on file Sexual Orientation Not on file Plan of Treatment Health Maintenance Due Date Last Done Comments DTaP,Tdap,and Td Vaccines (1 - Tdap) 1983 Pneumococcal Vaccine: 50+ Ye ars (1 of 1 - PCV) 2014 Zoster Vaccines (1 of 2) 2014 COVID-19 Vaccine (1 - 2023-2 5 season) 2024 Influenza Vaccine (#1) 2024 RSV Immunization Patients 60 + Years Old (1 - 1-dose 75+ series) 2039 HIB Vaccines Aged Out No longer eligi ble based on patient's age to complete this topic HPV Vaccines Aged Out No longer eligi ble based on patient's age to complete this topic Hepatitis A Vaccines Aged Out No long er eligible based on patient's age to complete this topic Hepatitis B Vaccines Aged Out No long er eligible based on patient's age to complete this topic IPV Vaccines Aged Out No longer eligi ble based on patient's age to complete this topic MMR Vaccines Aged Out No longer eligi ble based on patient's age to complete this topic Meningococcal ACWY Vaccine Aged Out N o longer eligible based on patient's age to complete this topic Meningococcal B Vacine Aged Out No lo nger eligible based on patient's age to complete this topic Pneumococcal Vaccine: Pediat rics (0 to 5 Years) and At-Risk Patients (6 to 64 Years) Aged Out No longer eligible b ased on patient's age to complete this topic RSV Immunization Patients Un sydney 20 months Aged Out No longer eligible b ased on patient's age to complete this topic Varicella Vaccines Aged Out No longer eligible based on patient's age to complete this topic
== END 2025-02-10 11:16 | disposition home or self-care (01) ==
LOC: HO.HMCHD 10:41
PROVIDERS: PCP Internal Medicine; Visit Provider Internal Medicine
DX: I10 Essential (primary) hypertension (principal); K21.9 Gastro-esophageal reflux disease without esophagitis; R62.50 Unspecified lack of expected normal physiological development in childhood

== ENCOUNTER → 2025-02-10 10:41 | Outpatient (BNVA) | payer MEDICARE, MEDICAID, SELFPAY | PROVIDERS: PCP Internal Medicine; Visit Provider Internal Medicine | DX: I10 Essential (primary) hypertension (principal); K21.9 Gastro-esophageal reflux disease without esophagitis; R62.50 Unspecified lack of expected normal physiological development in childhood | CPT/HCPCS: 99212 ==

== ENCOUNTER 2025-02-14 08:09 | Outpatient (REF) | payer MEDICARE, MEDICAID, SELFPAY ==
[2025-02-14 10:25] LABS: Hematocrit 47.3 % (42.0-52.0); Hemoglobin 16.6 g/dl (14.0-18.0); Mean Corpuscular HGB Conc 35.1 g/dl (31.0-36.0); Mean Corpuscular Hemoglobin 32.9 pg (27.0-33.0); Mean Corpuscular Volume 93.7 fL (80.0-98.0); Mean Platelet Volume 11.4 fL (9.4-12.4); Platelet Count 196 X10*3/uL (160-400); Red Blood Count 5.05 X10*6/uL (4.60-5.80); Red Cell Distribution Width 12.4 % (11.0-16.0); White Blood Count 4.1 X10*3/uL (4.8-10.8)
[2025-02-14 10:40] LABS: Alanine Aminotransferase 21 U/L (0-40); Albumin Level 4.7 g/dL (3.5-5.0); Alkaline Phosphatase 93 U/L (39-117); Anion Gap 11 (12-20); Aspartate Amino Transferase 18 U/L (5-37); Bilirubin Direct 0.2 mg/dL (0.0-0.5); Bilirubin Total 0.7 mg/dL (0.0-1.0); Blood Urea Nitrogen 14 mg/dL (9-16); Calcium 9.2 mg/dL (8.4-10.2); Carbon Dioxide 29 mmol/L (22-29); Chloride 102 mmol/L (96-108); Cholesterol 155 mg/dL (<200); Estimated Glomerular Filt Rate > 60; Glucose Random 96 mg/dL (60-115); HDL Cholesterol 45 mg/dL (>40); LDL Cholesterol Calculated 75 mg/dL (<100); Potassium 4.2 mmol/L (3.3-5.1); Sodium 138 mmol/L (135-145); Total Protein 8.3 g/dL (6.5-8.0); Triglycerides 177 mg/dL (<150)
[2025-02-14 11:00] LABS: Thyroid Stimulating Hormone 1.83 uIU/mL (0.32-4.0)
[2025-02-14 11:02] LABS: Appearance Urine Clear; Color Urine Yellow; Glucose Urine UA Negative (Negative); Leukocyte Esterase Urine Negative (Negative); Nitrite Urine Negative (Negative); Urine Blood Negative (Negative); Urine Ketones Negative (Negative); Urine Protein Negative (Neg-Trace)
[2025-02-18 02:34] LABS: Rubella IgG Antibody 8.71 Index
[2025-02-19 03:32] LABS: Mumps Virus IgG Antibody >300.00 AU/mL
[2025-02-19 09:34] LABS: Rubeola IgG (Measles) <13.50 AU/mL
== END 2025-02-14 08:10 | disposition home or self-care (01) ==
LOC: HO.10HDL 08:09
PROVIDERS: Visit Provider Internal Medicine
DX: I10 Essential (primary) hypertension (principal); Z11.9 Encounter for screening for infectious and parasitic diseases, unspecified; K21.9 Gastro-esophageal reflux disease without esophagitis
CPT/HCPCS: 36415; 80048; 80061; 80076; 81003; 84443; 85027; 86735; 86762; 86765

== ENCOUNTER 2025-02-24 12:43 | Outpatient (AMB) | payer MEDICARE, MEDICAID, SELFPAY ==
--- NOTE | 2025-02-24 13:01 | AM.OFFVISNUR ---
Intake Visit Reasons: MMR Intake Note: Pt arrived for MMR vaccine Allergies butalbital [From FIORINAL] Allergy (Unknown, Verified 02/10/25 10:42) SYNCOPE loratadine [From CLARITIN-D] Allergy (Unknown, Verified 02/10/25 10:42) SWELLING pseudoephedrine [From CLARITIN-D] Allergy (Unknown, Verified 02/10/25 10:42) SWELLING fiorinol Allergy (Unknown, Uncoded 02/10/25 10:42) Hives From SUDAFED Allergy (Unknown, Uncoded 02/10/25 10:42) HEART PALPITATIONS Sudafed OM Sinus Cold Allergy (Unknown, Uncoded 02/10/25 10:42) Anxiety Immunizations M-M-R II (PF) 1,000-12,500 TCID50/0.5 mL subcutaneous solution Performing Provider: Hollis Woodard MD Performing Location: [facility] Administered by: Kenia Prieto RN on 02/24/25 13:10 Dose Route Admin Location Dispensed Lot Number Expiration Date [facility] Framing Consultant 0.5 mL subcut Left Arm 0.5 mL [id number] 01/08/26 3964-1134-66 [employer] & D VIS Given Date VIS Provided VIS Publication Date 02/24/25 Single Vaccine 21 Eligibility Eligibility Date Funding Source Not [facility] Eligible 02/24/25 Private Administration Comments: Diluent [id number] Exp [id number] Assessment & Plan Assessment & Plan Orders: Orders MMR Immunization Today Z23 - Encounter for immunization Medications: New M-M-R II (PF) (measles,mumps,rubella vacc(PF)) 0.5 mL subcut ONCE 1 ea 0RF NS Z23 - Encounter for immunization Coding
--- OUTSIDE RECORDS SUMMARY | 2025-02-24 14:20 | XMS_ITS | Clinical Summary ---
Author Organization [facility] ity Address [address] [place] [address] Care Team Providers Care Senior Construction Estimator Name Role Phone Unavailable Primary Care Provider [...]
== END 2025-02-24 13:53 | disposition home or self-care (01) ==
LOC: HO.HMCC 12:43
PROVIDERS: PCP Internal Medicine; Visit Provider Internal Medicine
DX: Z23 Encounter for immunization (principal)

== ENCOUNTER → 2025-02-24 12:43 | Outpatient (BNVA) | payer MEDICARE, MEDICAID, SELFPAY | PROVIDERS: PCP Internal Medicine; Visit Provider Internal Medicine | DX: Z23 Encounter for immunization (principal) | CPT/HCPCS: 90471; 90707 ==

== ENCOUNTER 2025-05-29 09:28 | Outpatient (REF) | payer MEDICARE, MEDICAID, SELFPAY ==
--- OUTSIDE RECORDS SUMMARY | 2025-05-29 09:48 | XMS_ITS | Clinical Summary ---
Author Organization [facility] ity Address [address] [place] [address] Care Team Providers Care Cake Icer And Packer Name Role Phone Unavailable Primary Care Provider [...] Vaccines (1 of 2) 2014 COVID-19 Vaccine ( - 2023-2 5 season) 2024 Influenza Vaccine (Season Ended) 2025 RSV Immunization Adult Patie nts (1 - 1-dose 75+ series) 2039 HIB [...] age to complete this topic Meningococcal B Vaccine Aged Out No l onger eligible based on patient's age to complete [...]
--- OUTSIDE RECORDS SUMMARY | 2025-05-29 09:48 | XMS_ITS | Data Portability ---
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 [email or web address] Not available 05/08/2025 14:30:52 Plan of Treatment Reminders Order Date Submit Date Provider Last Modified By Organization Details Last Modified Time Details Appointments None record ed. Lab None record ed. Referral None record ed. Procedures None record ed. Surgeries None record ed. Imaging None record ed. Medication Orders None record ed. Patient TargetsNo targets recorded. Patient InstructionsNo instructions recorded. Reason for Referral None Reported. Results Created Date Observation Date Name Description Value Unit Range Abnormal Flag Note LastModifiedBy Organization Detail LastModifiedTime 05/09/20 25 audio gram No observ ation record ed. BARCODE Not Available 2024 09:20:51 Result Notes None recorded. Problems Name Problem SNOMED Code Status Onset Date Resolution Date Notes Provider Name and Address Organization Details Recorded Time Dizziness and giddiness 493023072 Active 2024 JULIO CÉSAR Blackburn MD [address] [address], [place], [phone], [facility] - [facility] 14:52:04 Atrial fibrillation 54593224 Active 2024 JULIO CÉSAR Blackburn MD [address] [address], [place], [phone], [facility] 15:01:10 Sensorineural hearing loss of bilateral ears 637678976 Active 2024 JULIO CÉSAR Blackburn MD [address] [facility] [address], [place], [address], [facility] - [facility] 15:01:36 Problem Notes None recorded. Procedures Surgical History Date Name Laterality Status Provider Name and Address Organization Details Recorded Time 05/08/2025 Comp Audio with Tymps - 00358 & [id number] completed DOMINICK NEWMAN [place], CCC-A [address], [phone], [facility] - [facility] 05/08/2025 14:30:53 Imaging Results None recorded. Procedure Notes None recorded. Medical Equipment None Reported. Medications Name Sig Start Date Stop Date Status Note LastModified by Organization Details LastModified Time famotidine 40 mg tablet TAKE ONE TABLET BY MOUTH DAILY AT BEDTIME active Not Available Not Available No t Available simvastatin 10 mg tablet TAKE ONE TABLET BY MOUTH DAILY AT BEDTIME active Not Available Not Available No t Available fexofenadine 180 mg tablet TAKE ONE TABLET BY MOUTH EVERY DAY active Not Available Not Available No t Available lisinopril 5 mg tablet TAKE ONE TABLET BY MOUTH EVERY DAY active Not Available Not Available No t Available Advair HFA 230 mcg-21 mcg/actuation aerosol inhaler INHALE ONE PUFF BY MOUTH TWICE A DAY active Not Available Not Available No t Available Vitals None Recorded Social History None recorded. Functional Status None recorded. Mental Status None recorded. Family History Nothing Reported. Medical History No medical history recorded. Past Encounters Encounter ID Performer Location Encounter Start Date Encounter Closed Date Diagnosis/Indication Diagnosis SNOMED-CT Code Diagnosis ICD10 Code Diagnosis Note [id number] JULIO CÉSAR WILLETT MD [facility] [address] [place] [address] 05/08/2025 13:33:46 05/08/2025 15:03:59 Dizziness and giddiness 619366958 R42 Exam and Tc-Hallpi ke were normal. Audiogram showed symmetric sensorineu ral hearing loss. No sign of M ni re's disease on audiogram. No sign of obvious inner ear pathology. It is possible that his recent dizziness has more to do with his atrial fibrillati on which is newly diagnosed then an inner ear disorder. I recommend vestibular therapy and continued follow-up with cardiology . I would be glad to see him as needed. Atrial fibrillation 4943 6004 I48.91 f/u with cardiology Sensorineu ral hearing loss of bilateral ears 688374510 H90.3 gave clearance for hearing aids [id number] DOMINICK NEWMAN [place], [facility] [address] [place] [address] 05/08/2025 13:33:20 05/14/2025 10:36:03 Dizziness and giddiness [id number] R42 Audiologic al evaluation results: Right ear: Normal hearing sloping to a mild SNHL with excellent word recognitio n. Left ear: Normal hearing thru 2000Hz sloping to a mild SNHL with excellent word recognitio n. Tympanomet ry: Right Ear:Type As Left Ear:Type A Health Concerns Section Related Observation LastModified by Organization Detai ls LastModified Time None Recorded Concern Status LastModified by Organization Details LastModified Time None Recorded Advance Directives Directive None Recorded Payers Insurance Date Sequence Insurance Name Policy Number Policy Lopes Covered Member ID Lopes Member ID Guarantor Name 05/28/2025 1 [place] [employer] Colt Jovani Casillas [id number] Colt Casillas 05/28/2025 2 [place] [facility] Colt Hahn Vinny [id number] Colt Casillas Notes Date Note Type Note Provider Name and Address Organization Details Recorded Time 05/08/2025 text/html He has a history of room spinning vertigo. His dizziness comes and goes. It lasts for 20 minutes. Has tinnitus which comes and goes. Audio today showed normal sloping to moderate SNHL AU. He was recently hospitalized for Afib. He had a recent fall and is now in rehab. Last vertigo was a week ago. JULIO CÉSAR WILLETT MD [address], [phone], [facility] 05/08/2025 15:03:23 05/08/2025 text/html Dx Coby de Garcia Syndrome DOMINICK NEWMAN MA, CCC-A [address] [place] [address], [phone], [facility] - [facility] 05/08/2025 14:33:47
[2025-05-29 14:00] LABS: Thyroid Stimulating Hormone 1.53 uIU/mL (0.32-4.0)
[2025-05-29 14:05] LABS: Vitamin B12 385 pg/mL (200-900)
== END 2025-05-29 09:29 | disposition home or self-care (01) ==
LOC: HO.HMGCLDS 09:28
PROVIDERS: PCP Nurse Practitioner Family; Visit Provider Psychiatry & Neurology Neurology
DX: R20.0 Anesthesia of skin (principal)
CPT/HCPCS: 36415; 82607; 84443

== ENCOUNTER 2025-08-13 13:31 | Inpatient (IN) | payer MEDICARE, MEDICAID, SELFPAY ==
--- NOTE | 2025-08-13 | ECG_ITS ---
Test Reason : SYNCOPY Blood Pressure : */* mmHG Vent. Rate : 72 BPM Atrial Rate : 72 BPM P-R Int : 194 ms QRS Dur : 90 ms QT Int : 384 ms P-R-T Axes : 13 -40 -5 degrees QTcB Int : 420 ms Normal sinus rhythm Possible Left atrial enlargement Left axis deviation Abnormal ECG When compared with ECG of 25-Apr-2017 08:41, No significant change was found Referred By: Generic ED Physician Electronically Signed By: KHANH ARIZA
--- NOTE | ~2025-08-13 | CT_ITS ---
EXAMINATION: CT ABDOMEN AND PELVIS WITHOUT CONTRAST CLINICAL INFORMATION: Abdominal pain with rectal bleeding COMPARISON: None available. TECHNIQUE: Multidetector volumetric imaging was performed from the superior aspect of the liver through the pubic symphysis. Sagittal and coronal reformatted images were obtained on the technologist's workstation. This CT examination was performed using dose optimization techniques as appropriate, variously including the following: *Automated exposure control *Adjustment of mA and/or kV according to patient size (this includes techniques or standardized protocols for targeted exams where dose is matched to indication/reason for exam; i.e. extremities or head) *Use of iterative reconstruction technique DLP: 673 mGy*cm FINDINGS: LUNG BASES: Calcified bilateral hilar lymph nodes are present. The visualized lungs are clear. LIVER, GALLBLADDER, AND BILIARY TREE: The liver is normal in size, shape, and attenuation. No focal hepatic lesion or biliary ductal dilatation is present. The gallbladder is unremarkable with no evidence of radiopaque gallstones, gallbladder wall thickening, or obvious pericholecystic inflammatory changes. PANCREAS: Unremarkable. SPLEEN: Unremarkable. ADRENAL GLANDS: There is subtle nodularity of the left adrenal gland. KIDNEYS AND URETERS: There is mild perinephric stranding. There is a small exophytic simple cyst involving the posterior superior left kidney. No stones and no hydronephrosis is seen. BLADDER: Unremarkable. GASTROINTESTINAL TRACT: The small and large bowel are unremarkable. The appendix is unremarkable. ABDOMINAL WALL: Small indirect hernia containing fat is present on the left. LYMPH NODES: Normal. VASCULAR: Minimal atherosclerotic calcification is present in the distal common iliac arteries. PELVIC VISCERA: Unremarkable. OSSEOUS STRUCTURES: Multifocal degenerative changes are present in the lumbar spine with vacuum phenomena, disc space narrowing, endplate irregularities, and osteophytes. CT/CT abdomen pelvis wo IV con IMPRESSION: Changes from chronic granulomatous disease with bilateral hilar calcified lymph nodes. Nonspecific perinephric fat stranding. There is a small indirect hernia containing fat on the left. Degenerative disc disease and facet osteoarthritis. Fleischner guidelines were followed. Electronically signed by: Fernando Saab MD 08/13/2025 04:49 PM EDT
--- NOTE | ~2025-08-13 | US_ITS ---
EXAMINATION: BILATERAL CAROTID ULTRASOUND WITH DOPPLER HISTORY: syncope COMPARISON: There are no prior studies available for comparison. TECHNIQUE: Real time and Color and Spectral doppler ultrasonography of the carotid and vertebral arteries was performed in multiple planes. FINDINGS: No significant plaque is seen on the right. A small amount of plaque is seen in the left internal carotid artery. VERTEBRAL FLOW DIRECTION: Antegrade bilaterally. PEAK SYSTOLIC VELOCITIES (in cm/sec): RIGHT: CCA: Prox: 140 Dist: 71.3 ICA: Prox: 86.0 Mid: 91.4 Dist: 77.6 ICA/CCA Ratio: 0.6 ECA: 112 Peak ICA end diastolic velocity (EDV): 37.3 LEFT: CCA: Prox: 95.7 Dist: 104 ICA: Prox: 91.1 Mid: 73.6 Dist: 45.2 ICA/CCA Ratio: 0.9 ECA: 64.5 Peak ICA end diastolic velocity (EDV): 29.4 US/US carotid duplex BI IMPRESSION: Findings consistent with 0-49% stenosis of the bilateral internal carotid arteries. Electronically signed by: Morris Charles MD 08/14/2025 07:01 AM EDT
--- NOTE | ~2025-08-13 | XR_ITS ---
CLINICAL HISTORY: syncope 1 view chest x-ray Comparison: None provided Findings: Heart size is top-normal. Low lung volumes. Apparent mild interstitial prominence and mild haziness more so in the left lung. No significant pleural effusion or pneumothorax. No acute fracture. IMPRESSION: 1. Apparent mild interstitial prominence could be spurious due to technique and slight haziness, low-grade congestive heart failure not excluded. 2. Low lung volumes. This document has been electronically signed by: Mackenzie Clark MD on 08/13/2025 18:27:49
--- NOTE | ~2025-08-13 | CT_ITS ---
EXAMINATION: CT brain and CT cervical spine without contrast. CLINICAL INDICATION: Syncope and fall. COMPARISON: CT brain 04/26/2017. TECHNIQUE: 5 mm thin axial and reformatted 3 mm thin sagittal and coronal images of brain were obtained. Subsequently axial 3 mm thin and reformatted 2 minute thin sagittal and coronal images of cervical spine were obtained. DLP: 1773. This CT examination was performed using dose optimization techniques as appropriate, variously including the following: *Automated exposure control *Adjustment of mA and/or kV according to patient size (this includes techniques or standardized protocols for targeted exams where dose is matched to indication/reason for exam; i.e. extremities or head) *Use of iterative reconstruction technique. FINDINGS: Brain: There is no acute intra-axial, extra-axial bleed, masses or midline shift. There is no acute infarction in evolution. There is no edema. The [place]ak to white matter differentiation is maintained normal. The lateral ventricles are symmetrical in size and configuration without enlargement. No abnormality seen in the posterior fossa. Bone windows reveal no calvarial abnormality. There is no scalp soft tissue abnormality. There is mild mucoperiosteal thickening bilateral maxillary sinuses. Rest of ethmoid sinuses and mastoid air cells are well-aerated. No scalp soft tissue abnormality seen. Cervical spine: There is mild straightening of cervical lordosis. The vertebral heights and alignment is normal. There is moderate loss of C5-6, C6-C7, C7-T1 and T1-T2 disc heights with ventral and posterior spondylosis. The craniovertebral junction and the C1-C2 alignment is normal. There is no visible acute fracture, dislocation or subluxation seen. The prevertebral and paravertebral soft tissues are normal. The tracheal airway is widely patent. The lung apices are clear. Mild degenerative changes left TM joint are noted. CT/CT cervical spine wo IV con IMPRESSION: No acute intracranial process seen. There is no acute fracture, dislocation or subluxation seen in cervical spine. There is degenerative disc changes C5-6 through T1-T2 disc level Electronically signed by: Juan Perez MD 08/13/2025 04:37 PM EDT
[2025-08-13 13:38] VITALS: BP 120/90; PULSE 76; O2SAT 100
[2025-08-13 13:51] VITALS: BP 140/70; PULSE 70; RESP 16; TEMP 36.1; O2SAT 96; BMI 27.3
[2025-08-13 14:43] LABS: MANUAL DIFF FLAG NO
[2025-08-13 14:45] LABS: Hematocrit 46.0 % (42.0-52.0); Hemoglobin 16.0 g/dl (14.0-18.0); Imm Gran Abs Auto 0.02 X10*3/uL (0.00-0.03); Imm Gran Pct Auto 0.3 % (0.0-0.4); Lymphocytes Absolute Auto 1.1 X10*3/uL (1.2-4.9); Mean Corpuscular HGB Conc 34.8 g/dl (31.0-36.0); Mean Corpuscular Hemoglobin 32.1 pg (27.0-33.0); Mean Corpuscular Volume 92.4 fL (80.0-98.0); NRBC Abs Auto 0.000 X10*3/uL (0.0-0.012); NRBC Pct Auto 0.0 /100WBC (0.0-0.2); Platelet Count 239 X10*3/uL (160-400); Red Blood Count 4.98 X10*6/uL (4.60-5.80); White Blood Count 6.2 X10*3/uL (4.8-10.8)
[2025-08-13 15:02] LABS: Alanine Aminotransferase 15 U/L (0-40); Albumin Level 4.7 g/dL (3.5-5.0); Alkaline Phosphatase 93 U/L (39-117); Anion Gap 14 (12-20); Aspartate Amino Transferase 15 U/L (5-37); Blood Urea Nitrogen 14 mg/dL (9-16); Calcium 9.2 mg/dL (8.4-10.2); Carbon Dioxide 30 mmol/L (22-29); Chloride 101 mmol/L (96-108); Creatinine Clr Calc Pharmacy 46.4; Estimated Glomerular Filt Rate 56; Potassium 4.8 mmol/L (3.3-5.1); Sodium 140 mmol/L (135-145); Total Protein 7.6 g/dL (6.5-8.0)
--- NOTE | 2025-08-13 15:05 | ED.GENADULT ---
HPI - General Adult General Chief complaint: Syncope Stated complaint: fall, + sameer Time Seen by Provider: 08/13/25 15:07 Source: patient, family ( Older brother), EMS and old records reviewed Mode of arrival: EMS Limitations: no limitations History of Present Illness ED Provider: DR. Garrett HPI narrative: 60-year-old male history of mild developmental delay patient lives home independently by himself came in after had a syncopal episode in the morning patient stated that he passed out in the kitchen trying to get water to drink this morning, patient do not remember how he got on floor, patient also been complaining of mid abdominal pain x2 days, non off rectal bleed, no nausea, no vomiting, no fever, no chills. Related Data Home Medications ?Medication ?Instructions ?Recorded ?Confirmed albuterol sulfate 2.5 mg/3 mL 2.5 mg inhalation Q4-6H PRN 12/23/21 07/12/22 (0.083 %) solution for nebulization albuterol sulfate 90 mcg/actuation 2 puff inhalation Q6H PRN 12/23/21 07/12/22 aerosol inhaler (Ventolin HFA) fluticasone propionate 110 1 puff inhalation BID 12/23/21 02/09/23 mcg/actuation HFA aerosol inhaler (Flovent HFA) simvastatin 10 mg tablet 10 mg PO BEDTIME 12/23/21 02/09/23 acetaminophen 325 mg capsule 325 mg PO TID 07/12/22 02/09/23 fexofenadine 180 mg tablet 180 mg PO DAILY 07/12/22 02/09/23 (Naye Allergy) multivitamin 1 tab PO DAILY 08/05/22 02/09/23 Previous Rx's ?Medication ?Instructions ?Recorded famotidine 40 mg tablet 40 mg PO BEDTIME #30 tabs 12/18/23 lisinopril 5 mg tablet 5 mg PO DAILY #90 tabs 02/14/25 Allergies Allergy/AdvReac Type Severity Reaction Status Date / Time butalbital (From FIORINAL) Allergy Unknown SYNCOPE Verified 08/13/25 13:57 loratadine (From CLARITIN-D) Allergy Unknown SWELLING Verified 08/13/25 13:57 pseudoephedrine (From Allergy Unknown SWELLING Verified 08/13/25 13:57 CLARITIN-D) fiorinol Allergy Unknown Hives Uncoded 02/10/25 10:42 From SUDAFED Allergy Unknown HEART Uncoded 02/10/25 10:42 PALPITATIONS Sudafed OM Sinus Cold Allergy Unknown Anxiety Uncoded 02/10/25 10:42 Review of Systems Review of Systems: All other systems are reviewed and are negative Constitutional: Reports as per HPI and Reports no additional constitutional complaints Eyes: Reports as per HPI and Reports no additional eye complaints Reports system reviewed and no additional complaints, except as documented Cardiovascular: Reports as per HPI and Reports no additional cardiovascular complaints Respiratory: Reports as per HPI and Reports no additional respiratory complaints Gastrointestinal: Reports as per HPI and Reports no additional gastrointestinal complaints Genitourinary: Reports no additional female genitourinary complaints Musculoskeletal: Reports no additional musculoskeletal complaints Skin/Breast: Reports system reviewed and no additional complaints, except as docu Psychiatric: Reports no additional psychiatric complaints Endocrine: Reports no additional endocrine complaints Hematologic/Lymphatic: Reports no additional hematologic/lymphatic complaints Allergic/Immunologic: Reports no additional allergic/immunologic complaints Reports system reviewed and no additional complaints, except as documented and Reports Abnormal speech present [facility], [facility] Past Medical History Medical History IBS (irritable bowel syndrome) Surgical History History of colonoscopy (~05/01/23) H/O knee surgery H/O eye surgery Hx of tonsillectomy Family History Family History Mother HTN (hypertension) Social History Social History Household Members: None Housing: Apartment Alcohol intake: never Patient Tobacco Use Status: Never used Tobacco Advance Directives: No Advance Directives Information Provided: Yes Do you have a plan to hurt others: No Plan service: No Current occupational status: disabled Cognitive needs: Yes (special needs) Hearing needs: No Vision needs: Yes (rx glasses) Physical Exam ED Vital Signs: Vital Signs - 24 hr 08/13/25 13:51 08/13/25 15:51 Temperature 97.0 F Pulse Rate 70 78 Respiratory Rate 16 18 Blood Pressure 140/70 H 133/81 Pulse Oximetry 96 100 Oxygen Delivery Method Room Air Room Air BMI result Body Mass Index 27.3 Vital signs have been reviewed and appear to be correct. Blood pressure elevated. Heart rate normal. Respiratory rate normal. Temperature normal. Oxygen saturation normal. Appearance: Alert. Oriented X3. No acute distress. Head: Normal external exam. Normocephalic. Atraumatic. No Felipe signs noted. No raccoon eyes noted Eyes: PERRLA. EOMI. Conjunctiva and sclera normal. Eyelids normal. ENT: TM's Normal. Pharynx normal. Uvula midline. Moist mucous membranes. No trismus noted. No drooling noted. No muffled voice noted. Neck: Normal inspection. Neck supple. FROM. No adenopathy. Thyroid Normal. No meningeal signs. No neck mass noted. CVS: Normal heart rate and rhythm. Heart sound normal. No murmurs noted. Pulses normal throughout. Respiratory: No respiratory distress. Painless inspiration. Breath sounds normal. No wheezes/rales/rhonchi noted. Chest nontender. No accessory muscle usage noted or decreased air movement noted. Abdomen: Soft and nontender. Bowel sounds normal in all 4 quadrants. No distention noted. No organomegaly noted. No visible injury noted. Rectal exam: No hemorrhoid, brown stool, guaiac negative. Back: No CVA tenderness. Full range of motion noted. Skin: Skin warm and dry. Normal skin color. Normal skin turgor. No rashes/lesions/lacerations noted. Extremities: No lower extremity edema. Extremities exhibit normal range of motion. Extremities nontender. Neuro: Oriented X 3. Cranial nerve exam: II-XII are grossly intact No motor deficit. No sensory deficit. Reflexes normal. Course Reevaluation(s) Reevaluation #1: 1. syncope, no chest pain, no shortness of breath. Will admit for further syncopal workup. 2. Abdominal pain negative CT abdomen and pelvis. 3. Rectal bleed stable H&H stable vital signs rectal exam shows no blood in the stool. Time: 17:19 Medical Decision Making Differential Diagnosis Differential Diagnoses: The differential diagnosis associated with the presentation includes ( Rectal bleed, colitis, diverticulitis, hemorrhoid, syncope, ACS, SOB, dehydration, electrolyte derangement.) Admission/Observation Consideration of admission/observation: Escalation of care including admission/observation considered Consult Healthcare Provider Management of the patient was discussed with: Hospitalist (Dr. Beard) Lab Data MDM Lab Attestation statement: I reviewed the patient's lab results. 08/13/25 14:40 08/13/25 14:40 Labs: Lab Results 08/13/25 08/13/25 08/13/25 Range/Units 14:40 15:27 17:28 WBC 6.2 (4.8-10.8) X10*3/uL RBC 4.98 (4.60-5.80) X10*6/uL Hgb 16.0 (14.0-18.0) g/dl Hct 46.0 (42.0-52.0) % MCV 92.4 (80.0-98.0) fL MCH 32.1 (27.0-33.0) pg MCHC 34.8 (31.0-36.0) g/dl RDW 12.0 (11.0-16.0) % Plt Count 239 (160-400) X10*3/uL MPV 10.0 (9.4-12.4) fL Immature Gran % (Auto) 0.3 (0.0-0.4) % Neut % (Auto) 74.0 H (45-73) % Lymph % (Auto) 17.2 L (20-40) % Hawkins % (Auto) 7.6 (2-11) % Eos % (Auto) 0.6 (0-4) % Baso % (Auto) 0.3 (0-2) % Lymph # (Auto) 1.1 L (1.2-4.9) X10*3/uL Hawkins # (Auto) 0.5 (0.1-1.2) X10*3/uL Eos # (Auto) 0.0 (0.0-0.4) X10*3/uL Baso # (Auto) 0.0 (0.0-0.2) X10*3/uL Abs Immat Gran (auto) 0.02 (0.00-0.03) X10*3/uL Absolute Neuts (auto) 4.6 (2.0-8.3) x10*3/uL Absolute Nucleated RBC 0.000 (0.0-0.012) X10*3/uL Nucleated RBC % (auto) 0.0 (0.0-0.2) /100WBC Sodium 140 (135-145) mmol/L Potassium 4.8 (3.3-5.1) mmol/L Chloride 101 (96-108) mmol/L Carbon Dioxide 30 H (22-29) mmol/L Anion Gap 14 (12-20) BUN 14 (9-16) mg/dL Creatinine 1.31 (0.5-1.4) mg/dL Estim Creat Clear Calc 46.4 Estimated GFR 56 Random Glucose 112 (60-115) mg/dL Calcium 9.2 (8.4-10.2) mg/dL Total Bilirubin 0.5 (0.0-1.0) mg/dL AST 15 (5-37) U/L ALT 15 (0-40) U/L Alkaline Phosphatase 93 (39-117) U/L Troponin I High Sens < 2.7 (<3.5-35.0) ng/L Total Protein 7.6 (6.5-8.0) g/dL Albumin 4.7 (3.5-5.0) g/dL Urine Color Yellow Urine Appearance Clear Urine pH 7.5 (5.0-9.0) Ur Specific Richey 1.010 (1.005-1.025) Urine Protein Negative (Neg-Trace) mg/dL Urine Glucose (UA) Negative (Negative) mg/dL Urine Ketones Negative (Negative) mg/dL Urine Blood Negative (Negative) Urine Nitrite Negative (Negative) Ur Leukocyte Esterase Negative (Negative) Urine RBC 0-2 (0-2) /HPF Urine WBC 0-5 (0-5) /HPF Ur Squamous Epith Cells 0-2 (0-2) /HPF Urine Bacteria None Seen (None Seen) Hyaline Casts 0-2 (0-2) /LPF Stool Occult Blood NEGATIVE (NEGATIVE) Independent Interpretation I performed an independent interpretation of an: Plain X-Ray ( chest:1. Apparent mild interstitial prominence could be spurious due to technique and slight haziness, low-grade congestive heart failure not excluded. 2. Low lung volumes.) and CT Scan ( Head/C-spine / abdomen CT:o acute path) Radiology Impression Discussion of test interpretation with radiology: I have reviewed the radiologist's reading. Discharge Plan Discharge Clinical Impression: Syncope and collapse, Abdominal pain Patient Disposition: Admitted As Inpatient Print Language: Uzbek
[2025-08-13 15:39] LABS: OBS Int Ctl Valid YES; OBS1 NEGATIVE (NEGATIVE)
[2025-08-13 15:51] VITALS: BP 133/81; PULSE 78; RESP 18; O2SAT 100
[2025-08-13 16:06] LABS: Troponin-I High Sensitivity < 2.7 ng/L (<3.5-35.0)
[2025-08-13 17:36] LABS: Appearance Urine Clear; Glucose Urine UA Negative (Negative); PH 7.5 (5.0-9.0); Specific Gravity - Urine 1.010 (1.005-1.025)
[2025-08-13 18:46] VITALS: BP 118/78; PULSE 89; RESP 18; TEMP 36.9; O2SAT 96
--- NOTE | 2025-08-13 18:55 | PHA.MEDREC ---
Pharmacy Consult ? Medication Reconciliation Pharmacy has completed the medication reconciliation. Patient unaware of medications. Utilized claim history and medical record to complete med rec. Suzanna CaoD
--- NOTE | 2025-08-13 18:59 | PM.IMHP ---
History of Present Illness Date of Service: 08/13/25 Attending physician on admission: Lili Nash Chief Complaint: Syncope Pt is a 60 yo male with PMH vertigo, recent falls, palpitations, possible AFib with recent Holter monitor over the last month via [facility], developmental delay, hypertension, hyperlipidemia, essential tremor, COPD/asthma, GERD, IBS-D. anxiety is being seen in the emergency department status post an unwitnessed near syncopal or syncopal episode in patient's kitchen. Patient states earlier approximately 04:00 AM, patient felt a ?jolt x3 and experienced some anxiety and then was able to fall back to sleep. Patient does state he has a history of palpitations in the past. Patient explained that he would have rather gone to [facility] because in the past when he was here at [facility], he was complaining of belly pain but was discharged and placed in a wheelchair outside awaiting his ride back home. Patient became tearful explaining this. Patient is also complaining of diffuse abdominal pressure in the lower abdomen. Patient denied having any diarrhea earlier today and also no issues with constipation. Family offers that patient has been experiencing increasing anxiety to the level that patient appears to be in fight or flight most of the time. Patient [facility] a therapist at [facility] but does not have psychiatric care. Patient does not currently take any SSRIs or psychiatric medications. Incidentally patient's mother also being seen in the emergency department now being discharged was able to provide more information regarding events from earlier today. Patient had gone out to breakfast with a caregiver and upon arrival to the restaurant, patient stated he had to run to the bathroom. Patient returned and was able to have breakfast. Upon return to his apartment where patient lives alone, patient stated he had to run to the bathroom again. Patient's mother states it may have been diarrhea with hx of IBS-D. Later in the day, whilein the kitchen obtaining a glass of water, patient felt dizzy and stated he passed out. Patient has no idea how long he was ?passed out? for. Patient was then able to call his mother via cell phone. Pt's mother arrived and found the patient lying on his back with his hands behind his head. Patient was not responding verbally but when his watch dinged with a message, patient lifted his arm and looked at the watch and read the message. Patient's mother then called 911 because she could not help pt up off the floor. Patient has no history of seizures and was just seen by a neurologist yesterday for essential tremor and previous abnormal finding involving the C-spine. Patient was cleared by the neurologist and had no new diagnoses at the end of the visit. Patient has been at [facility] at least 3 times over the last 3 months for fall related issues. Patient has been wearing a Holter monitor in total for the last 4 weeks. Family were told that patient had evidence of AFib but was not started on an anticoagulant. Patient was started on metoprolol. 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 Records have been requested from [facility]. Patient has had history of Holter monitor back in April of 2024 and there was a short 7 beat run of SVT, max rate 142 but no evidence of AFib or other arrhythmias. Last echo was from 2020 and noted in the EF of 55-60% with normal diastolic function for patient's age. There was no valvular disease noted as well. There was no murmur on exam. Workup in the ED identified no acute findings on head CT and cervical spine CT. Patient does have degenerative disc disease involving C5 and C6 and T1 through T2. In addition chest x-ray negative for obvious acute findings including pneumonia, pulmonary edema or pleural effusion, but does indicate a mild interstitial prominence that could possibly be spurious due to technique, slight haziness or low-grade congestive heart failure. Patient has no leukocytosis, no fever and hemodynamics are stable. CO2 30 on BNP and magnesium and BNP are pending. Troponin negative. EKG NSR, possible left atrial enlargement with left axis deviation and a QTC of 420. CT scan of the abdomen and pelvis were negative for any acute findings. Stool panel has been sent and is pending. Please note that patient's mother is elderly and she appears to be the primary caregiver with siblings present that help when they can. Family has been considering that patient can no longer live alone and is looking into a Pace program known as [employer]. They are also looking into other living arrangements including an apartment complex that is affiliated with sister's joel Wall in connection with the pace program on the same [place] in [place]. Patient states he continues to work at [employer] in the [place] part-time. Review of Systems Review of Systems: Patient currently denies any chest pain or shortness of breath at rest. Patient states he does have that diffuse sensation in his belly which is nonspecific. Patient currently denies any diarrhea or constipation but family reported that he had to episodes earlier today of having to run to the bathroom for for a bowel movement that may have been diarrhea. Patient denies any headache or visual changes at this time. Patient is very emotional and anxious in general regarding his health issues and need for admission. Yes all other systems are reviewed and are negative [facility] Medical History Essential tremor Vertigo Falls Asthma Developmental delay, mild Irritable bowel syndrome with diarrhea GERD (gastroesophageal reflux disease) Morbid obesity Anxiety Hypertension IBS (irritable bowel syndrome) Cognitive capacity: Alert and orientated x3 Functional capacity: independent ambulation Family History Mother HTN (hypertension) Surgical History History of colonoscopy (~05/01/23) H/O knee surgery H/O eye surgery Hx of tonsillectomy Social History Household Members: None Housing: House Alcohol intake: never Patient Tobacco Use Status: Never used Tobacco Currently Displaying Signs/Symptoms of Drug Intoxication Withdrawal: No Have you been hit, kicked, punched, or otherwise hurt by someone within the past year? If so, by whom?: No Advance Directives: No Advance Directives Information Provided: Yes Do you have a plan to hurt others: No Plan Recently lost weight without trying: Unsure service: No Current occupational status: disabled Cognitive needs: Yes (special needs) Hearing needs: No Vision needs: Yes (rx glasses) Ebola Risk: Travel/Contact With Anyone From Affected Area/s: No Has Patient Experienced Ebola Symptoms: No Meds Allergies Allergy/AdvReac Type Severity Reaction Status Date / Time butalbital (From FIORINAL) Allergy Unknown SYNCOPE Verified 08/13/25 13:57 loratadine (From CLARITIN-D) Allergy Unknown SWELLING Verified 08/13/25 13:57 pseudoephedrine (From Allergy Unknown SWELLING Verified 08/13/25 13:57 CLARITIN-D) fiorinol Allergy Unknown Hives Uncoded 02/10/25 10:42 From SUDAFED Allergy Unknown HEART Uncoded 02/10/25 10:42 PALPITATIONS Sudafed OM Sinus Cold Allergy Unknown Anxiety Uncoded 02/10/25 10:42 Home Medications ?Medication ?Instructions ?Recorded ?Confirmed ?Last Taken ?Type albuterol sulfate 2.5 mg/3 mL 2.5 mg inhalation Q4-6H PRN 12/23/21 08/13/25 Unknown History (0.083 %) solution for nebulization Shortness Of Breath Or Wheezing albuterol sulfate 90 mcg/actuation 2 puff inhalation Q6H PRN 12/23/21 08/13/25 Unknown History aerosol inhaler (Ventolin HFA) Shortness Of Breath Or Wheezing simvastatin 10 mg tablet 10 mg PO BEDTIME 12/23/21 08/13/25 Unknown History fexofenadine 180 mg tablet 180 mg PO DAILY 07/12/22 08/13/25 Unknown History (Naye Allergy) fluticasone propionate 230 2 puff inhalation BID 08/13/25 08/13/25 Unknown History mcg-salmeterol 21 mcg/actuation HFA inhaler (Advair HFA) metoprolol tartrate 50 mg tablet 50 mg PO BID 08/13/25 08/13/25 Unknown History Physical Exam Vital Signs and Narrative: Vital Signs: Last Vital Signs Temp 98.4 F 08/13/25 18:46 Pulse 89 08/13/25 18:46 Resp 18 08/13/25 18:46 BP 118/78 08/13/25 18:46 Pulse Ox 96 08/13/25 18:46 O2 Del Method Room Air 08/13/25 18:46 BMI result Body Mass Index 27.3 Alert and orientated X3, able to answer questions asked and follow commands. Neuro: CN II-X11 intact, no deficits, visual acuity intact EYES: PERRLA, EOM intact, sclerae nonicteric ENT: hearing intact, no issues with swallowing, uvula midline, lips moist, nares patent no epistaxis Cardiac: S1 S2 RRR, no murmur, no JVD, no edema in Lower ext Pulmonary: lungs diminished bilaterally Abdominal: BS active in all 4 quadrants, no guarding, tenderness, rebounding, mild distention MSK: strength 4/5 upper and lower extremities : no CVA tenderness no bladder distension Extremities: no edema in lower extremities, PT and DP pulses palpable +2 Psych: mood anxious, judgement and insight fair Skin: No new lesions or rashes Results Labs 08/13/25 14:40 08/13/25 14:40 Labs: Laboratory Results - last 24 hr 08/13/25 08/13/25 08/13/25 14:40 15:27 17:28 MCV 92.4 MCH 32.1 MCHC 34.8 RDW 12.0 Plt Count 239 MPV 10.0 Immature Gran % (Auto) 0.3 Neut % (Auto) 74.0 H Lymph % (Auto) 17.2 L [place] % (Auto) 7.6 Eos % (Auto) 0.6 Baso % (Auto) 0.3 Lymph # (Auto) 1.1 L [place] # (Auto) 0.5 Eos # (Auto) 0.0 Baso # (Auto) 0.0 Abs Immat Gran (auto) 0.02 Absolute Neuts (auto) 4.6 Absolute Nucleated RBC 0.000 Nucleated RBC % (auto) 0.0 Anion Gap 14 Estim Creat Clear Calc 46.4 Estimated GFR 56 Random Glucose 112 Calcium 9.2 Total Bilirubin 0.5 AST 15 ALT 15 Alkaline Phosphatase 93 Troponin I High Sens < 2.7 Total Protein 7.6 Albumin 4.7 Urine Color Yellow Urine Appearance Clear Urine pH 7.5 Ur Specific [place] 1.010 Urine Protein Negative Urine Glucose (UA) Negative Urine Ketones Negative Urine Blood Negative Urine Nitrite Negative Ur Leukocyte Esterase Negative Urine RBC 0-2 Urine WBC 0-5 Ur Squamous Epith Cells 0-2 Urine Bacteria None Seen Hyaline Casts 0-2 Stool Occult Blood NEGATIVE ECG Attestation: I personally reviewed and interpreted this ECG as follows: (Normal sinus rhythm, left atrial enlargement normal QTC) Prior ECG tracings: available for review Imaging Radiologist's Impressions: Impressions Abdomen/Pelvis CT 08/13/25 15:45 IMPRESSION: Changes from chronic granulomatous disease with bilateral hilar calcified lymph nodes. Nonspecific perinephric fat stranding. There is a small indirect hernia containing fat on the left. Degenerative disc disease and facet osteoarthritis. Fleischner guidelines were followed. Electronically signed by: Fernando Saab MD 08/13/2025 04:49 PM EDT RP Cervical Spine CT 08/13/25 15:45 IMPRESSION: No acute intracranial process seen. There is no acute fracture, dislocation or subluxation seen in cervical spine. There is degenerative disc changes C5-6 through T1-T2 disc level Electronically signed by: Juan Perez MD 08/13/2025 04:37 PM EDT RP Head CT 08/13/25 15:45 IMPRESSION: No acute intracranial process seen. There is no acute fracture, dislocation or subluxation seen in cervical spine. There is degenerative disc changes C5-6 through T1-T2 disc level Electronically signed by: Juan Perez MD 08/13/2025 04:37 PM EDT RP Assessment and Plan (1) Syncope and collapse: Status: Acute Plan Pt is a 60 yo male with PMH vertigo, recent falls, palpitations, possible AFib with recent Holter monitor over the last month via [facility], developmental delay, hypertension, hyperlipidemia, essential tremor, COPD/asthma, GERD, IBS-D. anxiety is being seen in the emergency department status post an unwitnessed near syncopal or syncopal episode in patient's kitchen. Patient being admitted for syncopal workup and severe anxiety. Syncope and collapse unwitnessed No evidence of hypoglycemia Echo ordered, last record of echo is 2020 with normal EF and no valvular disease No murmur on exam Orthostatics x3 TEDS Cardiology consulted Telemetry Hydration started for suspicion of possible diarrhea and volume loss No CTA of the head and neck completed, will check carotid Dopplers Severe anxiety with noted developmental disability Psychiatric consult ordered for evaluation Family is looking into alternative living situations and care including [employer] program, [employer] Case management consulted Patient is not currently on any SSRIs or psychiatric treatment Patient does receive counseling through [facility] weekly IBS-D/ mild abdominal discomfort nonspecific Patient has chronic diagnosis but no follow-up with GI Patient may have had 2 episodes of diarrhea prior to syncopal episode IV fluids started Stool panel pending, precautions placed Will hold off on starting Imodium PRN until infection is ruled out Patient does not meet the criteria for sepsis upon admission CT of the abdomen and pelvis negative for any acute findings including colitis or diverticulitis Zofran PRN Hypertension Blood pressure currently 118/78 avoid hypotension Low-sodium diet Patient normally on lisinopril and metoprolol Renal function appears to be at baseline, creatinine clearance 46.4 Recent Holter monitor at [facility]/ multiple falls Patient was started on metoprolol 50 mg b.i.d. No evidence of bradycardia or heart block Continue telemetry Records from [facility] have been requested PT eval requested Degenerative disc disease involving C5-C6 and T1-T2 Tylenol PRN PT eval as above Hyperlipidemia Continue statin LFT's stable Asthma/COPD No evidence of hypoxia Duo nebs p.r.n. GERD Continue famotidine Avoid food triggers DVT prophylaxis: Lovenox Med rec pending Full Code status Quality Stroke Does the patient have a stroke diagnosis?: No Reason for No Anti-thrombotic by Day Two: N/A - Med Ordered VTE Prior VTE?: No VTE Risk Level:: Medical - moderate - high VTE Device Contraindication: N/A - Device Ordered VTE Drug Contraindication: N/A - Med Ordered
--- NOTE | 2025-08-13 19:56 | HO.NURTONUR ---
Pt is here w/ c/o witnessed syncopal episode, witnessed by family. EMS reports, family reported, he threw himself on the floor. No loc. When EMS arrived pt was on floor w/ pillow under his head and blanket w/ no obvious trauma. Work-up in ED neg. At baseline pt is high function mentally challenged. Independant w/ ambulation and adl's
[2025-08-13 20:04] VITALS: BMI 31.3
[2025-08-13 20:14] LABS: B Type Natriuretic Peptide 41 pg/mL (<100)
[2025-08-13 20:32] LABS: Lipase 24 U/L (8-78); Magnesium 2.2 mg/dL (1.6-2.6)
[2025-08-13 21:20] LABS: Free T4 (Free Thyroxine) 0.95 ng/dL (0.71-1.85)
[2025-08-13 21:51] VITALS: BP 140/68; PULSE 85; RESP 16; TEMP 36.4; O2SAT 98
[2025-08-13 23:05] VITALS: BP 115/67; PULSE 79; RESP 18; TEMP 36.9; O2SAT 98
[2025-08-13] MEDS: 0.9 % Sodium Chloride Flush 3 ML SYRINGE IVFLUSH (23:43)
[2025-08-14] VITALS (12 sets, daily range): BP systolic 118–155; BP diastolic 63–87; PULSE 64–104; RESP 16–18; TEMP 36–36.8; O2SAT 96–98
[2025-08-14 06:48] LABS: MANUAL DIFF FLAG NO
[2025-08-14 06:56] LABS: Hematocrit 43.5 % (42.0-52.0); Hemoglobin 15.2 g/dl (14.0-18.0); Imm Gran Abs Auto 0.02 X10*3/uL (0.00-0.03); Imm Gran Pct Auto 0.5 % (0.0-0.4); Lymphocytes Absolute Auto 0.9 X10*3/uL (1.2-4.9); Mean Corpuscular HGB Conc 34.9 g/dl (31.0-36.0); Mean Corpuscular Hemoglobin 32.3 pg (27.0-33.0); Mean Corpuscular Volume 92.4 fL (80.0-98.0); NRBC Abs Auto 0.000 X10*3/uL (0.0-0.012); NRBC Pct Auto 0.0 /100WBC (0.0-0.2); Platelet Count 198 X10*3/uL (160-400); Red Blood Count 4.71 X10*6/uL (4.60-5.80); White Blood Count 4.4 X10*3/uL (4.8-10.8)
[2025-08-14 07:18] LABS: Anion Gap 12 (12-20); Blood Urea Nitrogen 11 mg/dL (9-16); Calcium 8.5 mg/dL (8.4-10.2); Carbon Dioxide 27 mmol/L (22-29); Chloride 105 mmol/L (96-108); Cholesterol 145 mg/dL (<200); Creatinine Clr Calc Pharmacy 60.5; Estimated Glomerular Filt Rate > 60; HDL Cholesterol 34 mg/dL (>40); Potassium 4.0 mmol/L (3.3-5.1); Sodium 140 mmol/L (135-145); Triglycerides 192 mg/dL (<150)
--- NOTE | 2025-08-14 08:00 | P.PNIM_ITS ---
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 Review of Systems Review of Systems: Yes Unobtainable due to mental condition and Unobtainable due to mental status Physical Exam 2 Exam: Exam: General: AOx0, no acute distress Resp: CTA bilaterally CVS: S1, S2, RRR GI: +BS, NT, no distention Skin: Warm, dry Psych-severe anxiety Vital Signs: Vital Signs: Last Vital Signs Temp 97.7 F 08/14/25 07:40 Pulse 89 08/14/25 07:40 Resp 16 08/14/25 07:40 BP 118/73 08/14/25 07:40 Pulse Ox 97 08/14/25 07:40 O2 Del Method Room Air 08/14/25 07:40 BMI result Body Mass Index 31.3 Objective Data Active Medications Acetaminophen (Acetaminophen 325 Mg Tablet) 650 mg PO Q6H PRN PRN Reason: Pain, Mild 1-3,fever,headache Albuterol/Ipratropium (Albuterol/Iprat 2.5/0.5mg 3 Ml Ampul.Neb) 3 ml INHALE Q4H PRN PRN Reason: Shortness of Breath/Wheezing Calcium Carbonate (Calcium Carbonate 750 Mg Tab.Chew) 750 mg PO Q4H PRN PRN Reason: Heartburn Enoxaparin Sodium (Enoxaparin Sodium 40 Mg/0.4 Ml Syringe) 40 mg SUBCUT Q24H [facility] Last Admin: 08/13/25 19:59 Dose: 40 mg Documented By: COMFORT Sodium Chloride (Ns) 1,000 mls @ 100 mls/hr IVCONT .Q10H [facility] Last Infusion: 08/14/25 07:33 Dose: Infused Documented By: RG Magnesium Hydroxide (Milk Of Magnesia 30 Ml Oral.Susp) 30 ml PO DAILY PRN PRN Reason: Constipation Melatonin (Melatonin 3 Mg Tablet) 6 mg PO BEDTIME PRN PRN Reason: Insomnia Ondansetron HCl (Ondansetron Hcl 4 Mg/2 Ml Vial) 4 mg IVPUSH Q8H PRN PRN Reason: Nausea and Vomiting Polyethylene Glycol (Polyethylene Glycol 3350 17 Gm Powd.Pack) 17 gm PO DAILY PRN PRN Reason: Constipation Senna (Sennosides 8.6 Mg Tablet) 17.2 mg PO BEDTIME [facility] Last Admin: 08/13/25 20:27 Dose: 17.2 mg Documented By: N-ASHA Sodium Chloride (0.9 % Sodium Chloride Flush 3 Ml Syringe) 3 ml IVFLUSH QSHIFT [facility] Last Admin: 08/13/25 23:43 Dose: 3 ml Documented By: ANDERM Labs 08/14/25 06:42 08/14/25 06:42 Labs: Laboratory Results - last 24 hr 08/13/25 08/13/25 08/13/25 14:40 15:27 17:28 MCV 92.4 MCH 32.1 MCHC 34.8 RDW 12.0 Plt Count 239 MPV 10.0 Immature Gran % (Auto) 0.3 Neut % (Auto) 74.0 H Lymph % (Auto) 17.2 L [place] % (Auto) 7.6 Eos % (Auto) 0.6 Baso % (Auto) 0.3 Lymph # (Auto) 1.1 L [place] # (Auto) 0.5 Eos # (Auto) 0.0 Baso # (Auto) 0.0 Abs Immat Gran (auto) 0.02 Absolute Neuts (auto) 4.6 Absolute Nucleated RBC 0.000 Nucleated RBC % (auto) 0.0 Anion Gap 14 Estim Creat Clear Calc 46.4 Estimated GFR 56 Random Glucose 112 Calcium 9.2 Magnesium Total Bilirubin 0.5 AST 15 ALT 15 Alkaline Phosphatase 93 Troponin I High Sens < 2.7 B-Natriuretic Peptide Total Protein 7.6 Albumin 4.7 Triglycerides Cholesterol LDL Cholesterol, Calc HDL Cholesterol Lipase TSH Free T4 Urine Color Yellow Urine Appearance Clear Urine pH 7.[address] [place] 1.010 Urine Protein Negative Urine Glucose (UA) Negative Urine Ketones Negative Urine Blood Negative Urine Nitrite Negative Ur Leukocyte Esterase Negative Urine RBC 0-2 Urine WBC 0-5 Ur Squamous Epith Cells 0-2 Urine Bacteria None Seen Hyaline Casts 0-2 Stool Occult Blood NEGATIVE 08/13/25 08/13/25 08/14/25 19:42 19:42 06:42 MCV 92.4 MCH 32.3 MCHC 34.9 RDW 11.9 Plt Count 198 MPV 10.6 Immature Gran % (Auto) 0.5 H Neut % (Auto) 65.9 Lymph % (Auto) 20.9 [place] % (Auto) 11.5 H Eos % (Auto) 0.7 Baso % (Auto) 0.5 Lymph # (Auto) 0.9 L [place] # (Auto) 0.5 Eos # (Auto) 0.0 Baso # (Auto) 0.0 Abs Immat Gran (auto) 0.02 Absolute Neuts (auto) 2.9 Absolute Nucleated RBC 0.000 Nucleated RBC % (auto) 0.0 Anion Gap 12 Estim Creat Clear Calc 60.5 Estimated GFR > 60 Random Glucose 94 Calcium 8.5 D Magnesium 2.2 Total Bilirubin AST ALT Alkaline Phosphatase Troponin I High Sens B-Natriuretic Peptide 41 Total Protein Albumin Triglycerides 192 H Cholesterol 145 LDL Cholesterol, Calc 73 HDL Cholesterol 34 L Lipase 24 TSH 0.13 L Cancelled Free T4 0.95 Urine Color Urine Appearance Urine pH Ur Specific [place] Urine Protein Urine Glucose (UA) Urine Ketones Urine Blood Urine Nitrite Ur Leukocyte Esterase Urine RBC Urine WBC Ur Squamous Epith Cells Urine Bacteria Hyaline Casts Stool Occult Blood Assessment and Plan (1) Syncope and collapse: Status: Acute Plan 60 yo male with PMH vertigo, recent falls, palpitations, possible AFib with recent Holter monitor over the last month via [facility], developmental delay, hypertension, hyperlipidemia, essential tremor, COPD/asthma, GERD, IBS-D. anxiety is being seen in the emergency department status post an unwitnessed near syncopal or syncopal episode in patient's kitchen. This is likely in the setting of anxiety and high stress environment Syncope falls-chronic [place] Palpitations AFib with recent Holter HTN HLD Essential tremor Patient was seen by Cardiology and psych team and no obvious etiology found Patient family is unable to care for him and likely looking for placement We will likely need placement Continue home meds PTOT Anxiety -psychiatry consulted-patient appears to be at his baseline with worsening anxiety-hydroxyzine initiated-psych team spoke to the mother COPD/asthma-not in exacerbation GERD/IBS -continue home med Patient is otherwise medically optimized and his presentation is deemed likely in the setting of stress DVT prophylaxis with home Eliquis This note is constructed using voice recognition software. While every effort has been made to ensure accuracy, foam caster errors may have been included. Quality Stroke Does the patient have a stroke diagnosis?: No Reason for No Anti-thrombotic by Day Two: N/A - Med Ordered VTE Prior VTE?: No VTE Risk Level:: Medical - moderate - high VTE Device Contraindication: N/A - Device Ordered VTE Drug Contraindication: N/A - Med Ordered
[2025-08-14 09:08] LABS: E. coli EAEC Not Detected (Not Detect.); E. coli EPEC Not Detected (Not Detect.); E. coli ETEC Not Detected (Not Detect.); E. coli STEC Not Detected (Not Detect.); Shigella sp./EIEC Not Detected (Not Detect.)
--- NOTE | 2025-08-14 10:21 | PM.CNCAR ---
History of Present Illness History of Present Illness Date of Service: 08/14/25 Chief complaint: Syncope Narrative: This is a cardiology consultation regarding syncopal episode. I obtained the history by reviewing the chart as well as discussing with the patient. Patient states that he went to the kitchen to get some drink and in that context, he apparently had a presyncopal versus syncopal episode. Per notes, he has got significant anxiety issues at baseline and described to be in a fight or flight mode most of the time. He also goes to a therapist. Not on any specific meds. It seems he went with his caregiver to get breakfast and after that, he has had some diary episodes with a history of IBS. Later that day, he felt dizzy and he had ? Passed out but not clear who witnessed this. In the Aureliano's mother arrived, he was found lying on his back with a hence behind his head. Then mother called 911 because she could not get him off the floor. Patient has apparently had multiple issues with this and he has been to [facility] several times. Per records, if you had short runs of SVT in the Holter and put on some beta-blockers. With regard to dizziness itself, there is mention of possible orthostasis although this could not be confirmed as blood pressure rather went up upon orthostatic checks. Currently, he is resting comfortably and does not have any active complaints. Nothing on telemetry either. Review of Systems Review of Systems: Yes all other systems are reviewed and are negative Constitutional: Constitutional: Reports as per HPI and Reports no additional constitutional complaints Eyes: Eyes: Reports as per HPI and Denies no additional eye complaints ENT: Denies system reviewed and no additional complaints, except as documented and Reports as per HPI Cardiovascular: Cardiovascular: Reports as per HPI, Reports no additional cardiovascular complaints, Denies acrocyanosis, Denies cool extremities, Denies chest pain, Denies leg edema, Denies lightheadedness, Reports Loss of Consciousness, Denies palpitations and Denies dyspnea Respiratory: Respiratory: Reports as per HPI, Denies no additional respiratory complaints and Denies dyspnea Gastrointestinal: Gastrointestinal: Reports as per HPI and Denies no additional gastrointestinal complaints Genitourinary: Genitourinary: Reports no additional male genitourinary complaints and Reports as per HPI Musculoskeletal: Musculoskeletal: Reports no additional musculoskeletal complaints and Reports as per HPI Integumentary/Breasts: Skin/Breast: Reports system reviewed and no additional complaints, except as docu Neurologic: Reports system reviewed and no additional complaints, except as documented and Reports as per HPI Psychiatric: Psychiatric: Reports no additional psychiatric complaints and Reports as per HPI Endocrine: Endocrine: Reports no additional endocrine complaints, Reports as per HPI and Denies palpitations Hematologic/Lymphatic: Hematologic/Lymphatic: Reports no additional hematologic/lymphatic complaints and Reports as per HPI Allergic/Immunologic: Allergic/Immunologic: Reports no additional allergic/immunologic complaints and Reports as per HPI PMFSH Past Medical History Medical History Essential tremor [place] Asthma Developmental delay, mild Irritable bowel syndrome with diarrhea GERD (gastroesophageal reflux disease) Morbid obesity Anxiety Hypertension IBS (irritable bowel syndrome) Family History Family History Mother HTN (hypertension) Surgical History Surgical History History of colonoscopy (~05/01/23) H/O knee surgery H/O eye surgery Hx of tonsillectomy Social History Social History Household Members: None Housing: House Alcohol intake: never Patient Tobacco Use Status: Never used Tobacco Currently Displaying Signs/Symptoms of Drug Intoxication Withdrawal: No Have you been hit, kicked, punched, or otherwise hurt by someone within the past year? If so, by whom?: No Advance Directives: No Advance Directives Information Provided: Yes Do you have a plan to hurt others: No Plan Recently lost weight without trying: Unsure service: No Current occupational status: disabled Cognitive needs: Yes (special needs) Hearing needs: No Vision needs: Yes (rx glasses) Travel History Ebola Risk: Travel/Contact With Anyone From Affected Area/s: No Has Patient Experienced Ebola Symptoms: No Meds Allergies Allergy/AdvReac Type Severity Reaction Status Date / Time butalbital (From FIORINAL) Allergy Unknown SYNCOPE Verified 08/13/25 13:57 loratadine (From CLARITIN-D) Allergy Unknown SWELLING Verified 08/13/25 13:57 pseudoephedrine (From Allergy Unknown SWELLING Verified 08/13/25 13:57 CLARITIN-D) fiorinol Allergy Unknown Hives Uncoded 02/10/25 10:42 From SUDAFED Allergy Unknown HEART Uncoded 02/10/25 10:42 PALPITATIONS Sudafed OM Sinus Cold Allergy Unknown Anxiety Uncoded 02/10/25 10:42 Active Medications: Current Medications Acetaminophen (Acetaminophen 325 Mg Tablet) 650 mg PO Q6H PRN PRN Reason: Pain, Mild 1-3,fever,headache Albuterol/Ipratropium (Albuterol/Iprat 2.5/0.5mg 3 Ml Ampul.Neb) 3 ml INHALE Q4H PRN PRN Reason: Shortness of Breath/Wheezing Calcium Carbonate (Calcium Carbonate 750 Mg Tab.Chew) 750 mg PO Q4H PRN PRN Reason: Heartburn Enoxaparin Sodium (Enoxaparin Sodium 40 Mg/0.4 Ml Syringe) 40 mg SUBCUT Q24H [facility] Last Admin: 08/13/25 19:59 Dose: 40 mg Sodium Chloride (Ns) 1,000 mls @ 100 mls/hr IVCONT .Q10H [facility] Last Infusion: 08/14/25 07:33 Dose: Infused Magnesium Hydroxide (Milk Of Magnesia 30 Ml Oral.Susp) 30 ml PO DAILY PRN PRN Reason: Constipation Melatonin (Melatonin 3 Mg Tablet) 6 mg PO BEDTIME PRN PRN Reason: Insomnia Ondansetron HCl (Ondansetron Hcl 4 Mg/2 Ml Vial) 4 mg IVPUSH Q8H PRN PRN Reason: Nausea and Vomiting Polyethylene Glycol (Polyethylene Glycol 3350 17 Gm Powd.Pack) 17 gm PO DAILY PRN PRN Reason: Constipation Senna (Sennosides 8.6 Mg Tablet) 17.2 mg PO BEDTIME [facility] Last Admin: 08/13/25 20:27 Dose: 17.2 mg Sodium Chloride (0.9 % Sodium Chloride Flush 3 Ml Syringe) 3 ml IVFLUSH QSHIFT [facility] Last Admin: 08/14/25 08:45 Dose: Not Given Home Medications ?Medication ?Instructions ?Recorded ?Confirmed ?Last Taken ?Type albuterol sulfate 2.5 mg/3 mL 2.5 mg inhalation Q4-6H PRN 12/23/21 08/13/25 Unknown History (0.083 %) solution for nebulization Shortness Of Breath Or Wheezing albuterol sulfate 90 mcg/actuation 2 puff inhalation Q6H PRN 12/23/21 08/13/25 Unknown History aerosol inhaler (Ventolin HFA) Shortness Of Breath Or Wheezing simvastatin 10 mg tablet 10 mg PO BEDTIME 12/23/21 08/13/25 Unknown History fexofenadine 180 mg tablet 180 mg PO DAILY 07/12/22 08/13/25 Unknown History (Naye Allergy) fluticasone propionate 230 2 puff inhalation BID 08/13/25 08/13/25 Unknown History mcg-salmeterol 21 mcg/actuation HFA inhaler (Advair HFA) metoprolol tartrate 50 mg tablet 50 mg PO BID 08/13/25 08/13/25 Unknown History Physical Exam Vital Signs: Vital Signs: Last Vital Signs Temp 97.7 F 08/14/25 07:40 Pulse 89 08/14/25 07:40 Resp 16 08/14/25 07:40 BP 118/73 08/14/25 07:40 Pulse Ox 97 08/14/25 07:40 O2 Del Method Room Air 08/14/25 07:40 BMI result Body Mass Index 31.3 Const: General: comfortable and no acute distress Orientation/consciousness: patient oriented x3 HEENT: Other: Unremarkable Head: Yes normal to inspection Neck: Neck: Yes normal visual inspection Chest: Chest palpation & inspection: normal inspection of the chest Resp: Auscultation: clear to auscultation bilaterally Cardio: Palpation: normal PMI Heart sounds: S1 normal heart sound present, S2 normal heart sound present, no gallops, no murmurs and no rubs GI: Palpation (GI): Soft to palpation Back/Spine/Pelvis: Other: unremarkable Skin: General skin exam: no rashes or lesions noted Neuro: General: patient oriented x3 Extrem: General: Yes normal to inspection Psych: Mental Status: mental status grossly normal Objective Labs and Meds 08/14/25 06:42 08/14/25 06:42 Lab results: Laboratory Results - last 24 hr 08/13/25 08/13/25 08/13/25 14:40 15:27 17:28 WBC 6.2 RBC 4.98 Hgb 16.0 Hct 46.0 MCV 92.4 MCH 32.1 MCHC 34.8 RDW 12.0 Plt Count 239 MPV 10.0 Immature Gran % (Auto) 0.3 Neut % (Auto) 74.0 H Lymph % (Auto) 17.2 L [place] % (Auto) 7.6 Eos % (Auto) 0.6 Baso % (Auto) 0.3 Lymph # (Auto) 1.1 L [place] # (Auto) 0.5 Eos # (Auto) 0.0 Baso # (Auto) 0.0 Abs Immat Gran (auto) 0.02 Absolute Neuts (auto) 4.6 Absolute Nucleated RBC 0.000 Nucleated RBC % (auto) 0.0 Sodium 140 Potassium 4.8 Chloride 101 Carbon Dioxide 30 H Anion Gap 14 BUN 14 Creatinine 1.31 Estim Creat Clear Calc 46.4 Estimated GFR 56 Random Glucose 112 Calcium 9.2 Magnesium Total Bilirubin 0.5 AST 15 ALT 15 Alkaline Phosphatase 93 Troponin I High Sens < 2.7 B-Natriuretic Peptide Total Protein 7.6 Albumin 4.7 Triglycerides Cholesterol LDL Cholesterol, Calc HDL Cholesterol Lipase TSH Free T4 Urine Color Yellow Urine Appearance Clear Urine pH 7.5 Ur Specific [place] 1.010 Urine Protein Negative Urine Glucose (UA) Negative Urine Ketones Negative Urine Blood Negative Urine Nitrite Negative Ur Leukocyte Esterase Negative Urine RBC 0-2 Urine WBC 0-5 Ur Squamous Epith Cells 0-2 Urine Bacteria None Seen Hyaline Casts 0-2 Stool Occult Blood NEGATIVE 08/13/25 08/13/25 08/14/25 19:42 19:42 06:42 WBC 4.4 L RBC 4.71 Hgb 15.2 Hct 43.5 MCV 92.4 MCH 32.3 MCHC 34.9 RDW 11.9 Plt Count 198 MPV 10.6 Immature Gran % (Auto) 0.5 H Neut % (Auto) 65.9 Lymph % (Auto) 20.9 [place] % (Auto) 11.5 H Eos % (Auto) 0.7 Baso % (Auto) 0.5 Lymph # (Auto) 0.9 L [place] # (Auto) 0.5 Eos # (Auto) 0.0 Baso # (Auto) 0.0 Abs Immat Gran (auto) 0.02 Absolute Neuts (auto) 2.9 Absolute Nucleated RBC 0.000 Nucleated RBC % (auto) 0.0 Sodium 140 Potassium 4.0 Chloride 105 Carbon Dioxide 27 Anion Gap 12 BUN 11 Creatinine 1.07 Estim Creat Clear Calc 60.5 Estimated GFR > 60 Random Glucose 94 Calcium 8.5 D Magnesium 2.2 Total Bilirubin AST ALT Alkaline Phosphatase Troponin I High Sens B-Natriuretic Peptide 41 Total Protein Albumin Triglycerides 192 H Cholesterol 145 LDL Cholesterol, Calc 73 HDL Cholesterol 34 L Lipase 24 TSH 0.13 L Cancelled Free T4 0.95 Urine Color Urine Appearance Urine pH Ur Specific [place] Urine Protein Urine Glucose (UA) Urine Ketones Urine Blood Urine Nitrite Ur Leukocyte Esterase Urine RBC Urine WBC Ur Squamous Epith Cells Urine Bacteria Hyaline Casts Stool Occult Blood ECG Interpretation: EKG with sinus rhythm at 72/Min; possible left atrial enlargement; leftward axis; normal LA and corrected QT. Imaging Radiologist's impression: Impressions Abdomen/Pelvis CT 08/13/25 15:45 IMPRESSION: Changes from chronic granulomatous disease with bilateral hilar calcified lymph nodes. Nonspecific perinephric fat stranding. There is a small indirect hernia containing fat on the left. Degenerative disc disease and facet osteoarthritis. Fleischner guidelines were followed. Electronically signed by: Fernando Saab MD 08/13/2025 04:49 PM EDT RP Cervical Spine CT 08/13/25 15:45 IMPRESSION: No acute intracranial process seen. There is no acute fracture, dislocation or subluxation seen in cervical spine. There is degenerative disc changes C5-6 through T1-T2 disc level Electronically signed by: Juna Perez MD 08/13/2025 04:37 PM EDT RP Head CT 08/13/25 15:45 IMPRESSION: No acute intracranial process seen. There is no acute fracture, dislocation or subluxation seen in cervical spine. There is degenerative disc changes C5-6 through T1-T2 disc level Electronically signed by: Juan Perez MD 08/13/2025 04:37 PM EDT RP Carotid Doppler Study 08/13/25 20:36 IMPRESSION: Findings consistent with 0-49% stenosis of the bilateral internal carotid arteries. Electronically signed by: Morris Charles MD 08/14/2025 07:01 AM EDT RP Assessment and Plan (1) Syncope and collapse: Status: Acute Plan Telemetry shows underlying sinus rhythm in the 80s. No evidence of any pauses, asystole, atrial or ventricular arrhythmias. No atrial fibrillation. Normal high sensitivity troponin level. Cardiac BNP is normal at 41. Orthostatic blood pressure signs are-135/80; 148/87 and 155/70- hence there is no evidence of orthostatic drops. Blood pressure actually has gone up with standing. Echocardiogram at [facility]-LVEF 55-60%. No wall motion abnormalities. No significant valvular abnormality. Holter monitor at [facility]-underlying sinus rhythm with short atrial runs, up to 15 beats. Overall, recurrent syncope but there was no evidence of orthostatic hypotension on the vital signs done here. There is no evidence of any arrhythmias on telemetry either. The short runs of SVT noted on [facility] Holter should not cause syncopal episodes. Not clear if any psychogenic components. If the rest of the telemetry monitoring is unremarkable, then he can follow-up at [facility] as previously planned. Procedures Date of Service Date of Service: 08/14/25
--- NOTE | 2025-08-14 12:55 | P.CNPS_ITS ---
History of Present Illness Date of Service: 08/14/2025 Chief Complaint: Syncope Reason for Consult: Severe anxiety Requesting physician: Felisha Beard Discussed with referring provider: Yes Sources of Information: patient interviewed and chart reviewed HPI Narrative: Pt is a 60 yo male with PMH vertigo, recent falls, palpitations, possible AFib with recent Holter monitor over the last month via [facility], developmental delay, hypertension, hyperlipidemia, essential tremor, COPD/asthma, GERD, IBS- D. anxiety is being seen in the emergency department status post an unwitnessed near syncopal or syncopal episode in patient's kitchen. Patient being admitted for syncopal workup and severe anxiety. Patient evaluated for severe anxiety. He was found sitting in his bed with his mother at bedside. Per hospitalist and nursing, patient has been calm and cooperative without behavioral disturbance since admitted. He is alert and oriented x4. He notes that for the past 3 months, he has been worrying a lot about many things including his and his mother's health and safety. He sleeps well. He denies depression. He is not on psychotropic medications. He lives alone. His mother notes that she provides frequent assistance to the patient. He also has a [employer]PER[employer] Will also with ADLs/IADLs. 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 He denies acute distress at this time. Medical Evaluation Reviewed: Yes FORMERLY [facility], [facility] Medical History Essential tremor Vertigo Falls Asthma Developmental delay, mild Irritable bowel syndrome with diarrhea GERD (gastroesophageal reflux disease) Morbid obesity Anxiety Hypertension IBS (irritable bowel syndrome) Surgical History History of colonoscopy (~05/01/23) H/O knee surgery H/O eye surgery Hx of tonsillectomy Diagnostics Vital Signs (24Hr): Vital Signs - 24 hr 08/13/25 13:51 08/13/25 15:51 08/13/25 18:46 Temperature 97.0 F 98.4 F Pulse Rate 70 78 89 Respiratory Rate 16 18 18 Blood Pressure 140/70 H 133/81 118/78 Pulse Oximetry 96 100 96 Oxygen Delivery Method Room Air Room Air Room Air 08/13/25 21:51 08/13/25 23:05 08/14/25 03:02 Temperature 97.6 F 98.5 F 96.8 F Pulse Rate 85 79 88 Respiratory Rate 16 18 18 Blood Pressure 140/68 H 115/67 133/67 Pulse Oximetry 98 98 96 Oxygen Delivery Method Room Air Room Air Room Air 08/14/25 05:55 08/14/25 05:57 08/14/25 05:59 Temperature Pulse Rate 88 99 104 H Respiratory Rate Blood Pressure 135/80 148/87 H 155/70 H Pulse Oximetry Oxygen Delivery Method 08/14/25 07:40 08/14/25 11:28 Temperature 97.7 F 98.0 F Pulse Rate 89 64 Respiratory Rate 16 16 Blood Pressure 118/73 127/66 Pulse Oximetry 97 96 Oxygen Delivery Method Room Air Room Air BMI result Body Mass Index 31.3 Labs 08/14/25 06:42 08/14/25 06:42 Labs: Laboratory Results - last 48 hr 08/13/25 08/13/25 08/13/25 14:40 15:27 17:28 WBC 6.2 RBC 4.98 Hgb 16.0 Hct 46.0 MCV 92.4 MCH 32.1 MCHC 34.8 RDW 12.0 Plt Count 239 MPV 10.0 Immature Gran % (Auto) 0.3 Neut % (Auto) 74.0 H Lymph % (Auto) 17.2 L Douglas % (Auto) 7.6 Eos % (Auto) 0.6 Baso % (Auto) 0.3 Lymph # (Auto) 1.1 L Douglas # (Auto) 0.5 Eos # (Auto) 0.0 Baso # (Auto) 0.0 Abs Immat Gran (auto) 0.02 Absolute Neuts (auto) 4.6 Absolute Nucleated RBC 0.000 Nucleated RBC % (auto) 0.0 Sodium 140 Potassium 4.8 Chloride 101 Carbon Dioxide 30 H Anion Gap 14 BUN 14 Creatinine 1.31 Estim Creat Clear Calc 46.4 Estimated GFR 56 Random Glucose 112 Calcium 9.2 Magnesium Total Bilirubin 0.5 AST 15 ALT 15 Alkaline Phosphatase 93 Troponin I High Sens < 2.7 B-Natriuretic Peptide Total Protein 7.6 Albumin 4.7 Triglycerides Cholesterol LDL Cholesterol, Calc HDL Cholesterol Lipase TSH Free T4 Urine Color Yellow Urine Appearance Clear Urine pH 7.5 Ur Specific Granger 1.010 Urine Protein Negative Urine Glucose (UA) Negative Urine Ketones Negative Urine Blood Negative Urine Nitrite Negative Ur Leukocyte Esterase Negative Urine RBC 0-2 Urine WBC 0-5 Ur Squamous Epith Cells 0-2 Urine Bacteria None Seen Hyaline Casts 0-2 Stool Occult Blood NEGATIVE Stl C. cayetanensis PCR Stool Rotavirus A PCR Stl Adenov F PCR Stool Astrovirus (PCR) Stool Campylobacter PCR Stool Cryptosporidium PCR Stl Sh Tox Pr E STEC PCR Stool E coli O157 PCR Stl Enterotoxigenic E PCR Stool EPEC (PCR) Stool EAEC (PCR) Stl E. histolytica PCR Stool Giardia Lamblia PCR Stl P. shigelloides PCR Stool Salmonella PCR Stool Sapovirus (PCR) Stl Shigella/EIEC PCR St Y.enterocolitica PCR Stool Vibrio (PCR) Stl Vibrio cholerae PCR Stl Norovirus GI/GII PCR 08/13/25 08/13/25 08/14/25 19:42 19:42 05:57 WBC RBC Hgb Hct MCV MCH MCHC RDW Plt Count MPV Immature Gran % (Auto) Neut % (Auto) Lymph % (Auto) Douglas % (Auto) Eos % (Auto) Baso % (Auto) Lymph # (Auto) Douglas # (Auto) Eos # (Auto) Baso # (Auto) Abs Immat Gran (auto) Absolute Neuts (auto) Absolute Nucleated RBC Nucleated RBC % (auto) Sodium Potassium Chloride Carbon Dioxide Anion Gap BUN Creatinine Estim Creat Clear Calc Estimated GFR Random Glucose Calcium Magnesium 2.2 Total Bilirubin AST ALT Alkaline Phosphatase Troponin I High Sens B-Natriuretic Peptide 41 Total Protein Albumin Triglycerides Cholesterol LDL Cholesterol, Calc HDL Cholesterol Lipase 24 TSH 0.13 L Cancelled Free T4 0.95 Urine Color Urine Appearance Urine pH Ur Specific Granger Urine Protein Urine Glucose (UA) Urine Ketones Urine Blood Urine Nitrite Ur Leukocyte Esterase Urine RBC Urine WBC Ur Squamous Epith Cells Urine Bacteria Hyaline Casts Stool Occult Blood Stl C. cayetanensis PCR Not Detected Stool Rotavirus A PCR Not Detected Stl Adenov F PCR Not Detected Stool Astrovirus (PCR) Not Detected Stool Campylobacter PCR Not Detected Stool Cryptosporidium PCR Not Detected Stl Sh Tox Pr E STEC PCR Not Detected Stool E coli O157 PCR Not applicable Stl Enterotoxigenic E PCR Not Detected Stool EPEC (PCR) Not Detected Stool EAEC (PCR) Not Detected Stl E. histolytica PCR Not Detected Stool Giardia Lamblia PCR Not Detected Stl P. shigelloides PCR Not Detected Stool Salmonella PCR Not Detected Stool Sapovirus (PCR) Not Detected Stl Shigella/EIEC PCR Not Detected St Y.enterocolitica PCR Not Detected Stool Vibrio (PCR) Not Detected Stl Vibrio cholerae PCR Not Detected Stl Norovirus GI/GII PCR Not Detected 08/14/25 06:42 WBC 4.4 L RBC 4.71 Hgb 15.2 Hct 43.5 MCV 92.4 MCH 32.3 MCHC 34.9 RDW 11.9 Plt Count 198 MPV 10.6 Immature Gran % (Auto) 0.5 H Neut % (Auto) 65.9 Lymph % (Auto) 20.9 Douglas % (Auto) 11.5 H Eos % (Auto) 0.7 Baso % (Auto) 0.5 Lymph # (Auto) 0.9 L Douglas # (Auto) 0.5 Eos # (Auto) 0.0 Baso # (Auto) 0.0 Abs Immat Gran (auto) 0.02 Absolute Neuts (auto) 2.9 Absolute Nucleated RBC 0.000 Nucleated RBC % (auto) 0.0 Sodium 140 Potassium 4.0 Chloride 105 Carbon Dioxide 27 Anion Gap 12 BUN 11 Creatinine 1.07 Estim Creat Clear Calc 60.5 Estimated GFR > 60 Random Glucose 94 Calcium 8.5 D Magnesium Total Bilirubin AST ALT Alkaline Phosphatase Troponin I High Sens B-Natriuretic Peptide Total Protein Albumin Triglycerides 192 H Cholesterol 145 LDL Cholesterol, Calc 73 HDL Cholesterol 34 L Lipase TSH Free T4 Urine Color Urine Appearance Urine pH Ur Specific Granger Urine Protein Urine Glucose (UA) Urine Ketones Urine Blood Urine Nitrite Ur Leukocyte Esterase Urine RBC Urine WBC Ur Squamous Epith Cells Urine Bacteria Hyaline Casts Stool Occult Blood Stl C. cayetanensis PCR Stool Rotavirus A PCR Stl Adenov F 40/41 PCR Stool Astrovirus (PCR) Stool Campylobacter PCR Stool Cryptosporidium PCR Stl Sh Tox Pr E STEC PCR Stool E coli O157 PCR Stl Enterotoxigenic E PCR Stool EPEC (PCR) Stool EAEC (PCR) Stl E. histolytica PCR Stool Giardia Lamblia PCR Stl P. shigelloides PCR Stool Salmonella PCR Stool Sapovirus (PCR) Stl Shigella/EIEC PCR St Y.enterocolitica PCR Stool Vibrio (PCR) Stl Vibrio cholerae PCR Stl Norovirus GI/GII PCR Imaging Radiology Impressions: ITS Impressions Abdomen/Pelvis CT 08/13/25 15:45 IMPRESSION: Changes from chronic granulomatous disease with bilateral hilar calcified lymph nodes. Nonspecific perinephric fat stranding. There is a small indirect hernia containing fat on the left. Degenerative disc disease and facet osteoarthritis. Fleischner guidelines were followed. Electronically signed by: Fernando Saab MD 08/13/2025 04:49 PM EDT RP Cervical Spine CT 08/13/25 15:45 IMPRESSION: No acute intracranial process seen. There is no acute fracture, dislocation or subluxation seen in cervical spine. There is degenerative disc changes C5-6 through T1-T2 disc level Electronically signed by: Juan Perez MD 08/13/2025 04:37 PM EDT RP Head CT 08/13/25 15:45 IMPRESSION: No acute intracranial process seen. There is no acute fracture, dislocation or subluxation seen in cervical spine. There is degenerative disc changes C5-6 through T1-T2 disc level Electronically signed by: Juan Perez MD 08/13/2025 04:37 PM EDT RP Carotid Doppler Study 08/13/25 20:36 IMPRESSION: Findings consistent with 0-49% stenosis of the bilateral internal carotid arteries. Electronically signed by: Morris Charles MD 08/14/2025 07:01 AM EDT RP Mental Status Exam Mental Status Exam Narrative: Appearance: Casually dressed in hospital attire, adequate hygiene Behavior: Calm and cooperative throughout the interview. Eye contact is appropriate, and there are no signs of psychomotor agitation or retardation Speech: Normal volume and prosody Thought process: Logical and goal-directed Thought content: Future oriented no self-harming thoughts Mood: Current Affect: Full, mood-congruent SI:denies HI:denies VH/AH:none Delusions: None Insight/judgment: Fair insight and judgment Memory/cog: Alert, oriented x 4. grossly intact to conversational testing Medications Medications Current Medications Acetaminophen (Acetaminophen 325 Mg Tablet) 650 mg PO Q6H PRN PRN Reason: Pain, Mild 1-3,fever,headache Albuterol/Ipratropium (Albuterol/Iprat 2.5/0.5mg 3 Ml Ampul.Neb) 3 ml INHALE Q4H PRN PRN Reason: Shortness of Breath/Wheezing Calcium Carbonate (Calcium Carbonate 750 Mg Tab.Chew) 750 mg PO Q4H PRN PRN Reason: Heartburn Enoxaparin Sodium (Enoxaparin Sodium 40 Mg/0.4 Ml Syringe) 40 mg SUBCUT Q24H [facility] Last Admin: 08/13/25 19:59 Dose: 40 mg Sodium Chloride (Ns) 1,000 mls @ 100 mls/hr IVCONT .Q10H [facility] Last Infusion: 08/14/25 07:33 Dose: Infused Magnesium Hydroxide (Milk Of Magnesia 30 Ml Oral.Susp) 30 ml PO DAILY PRN PRN Reason: Constipation Melatonin (Melatonin 3 Mg Tablet) 6 mg PO BEDTIME PRN PRN Reason: Insomnia Ondansetron HCl (Ondansetron Hcl 4 Mg/2 Ml Vial) 4 mg IVPUSH Q8H PRN PRN Reason: Nausea and Vomiting Polyethylene Glycol (Polyethylene Glycol 3350 17 Gm Powd.Pack) 17 gm PO DAILY PRN PRN Reason: Constipation Senna (Sennosides 8.6 Mg Tablet) 17.2 mg PO BEDTIME [facility] Last Admin: 08/13/25 20:27 Dose: 17.2 mg Sodium Chloride (0.9 % Sodium Chloride Flush 3 Ml Syringe) 3 ml IVFLUSH QSHIFT [facility] Last Admin: 08/14/25 08:45 Dose: Not Given Allergies Allergies Allergy/AdvReac Type Severity Reaction Status Date / Time butalbital (From FIORINAL) Allergy Unknown SYNCOPE Verified 08/13/25 13:57 loratadine (From CLARITIN-D) Allergy Unknown SWELLING Verified 08/13/25 13:57 pseudoephedrine (From Allergy Unknown SWELLING Verified 08/13/25 13:57 CLARITIN-D) fiorinol Allergy Unknown Hives Uncoded 02/10/25 10:42 From SUDAFED Allergy Unknown HEART Uncoded 02/10/25 10:42 PALPITATIONS Sudafed OM Sinus Cold Allergy Unknown Anxiety Uncoded 02/10/25 10:42 Assessment & Plan Assessment & Plan (1) Anxiety: Status: Acute Code(s): F41.9 - Anxiety disorder, unspecified Assessment and Plan: Will start hydroxyzine 25 mg twice daily as needed for anxiety; advised to take as prescribed. Instructed on the risks, benefits, and potential adverse reactions of the medication. Verbalized understanding and agreed with the plan. Total time managing care of this patient today ____ minutes. Patient educated on: diagnosis, medication risk/benefits and therapeutic strategies
--- NOTE | 2025-08-14 15:15 | MHC.CM.PN ---
Naila 08/14/25 DX Syncope Patient lives in an apartment by himself. He is independent with all functional mobility. PT eval recommendation is STR. He is connected with services [facility] (apt) and S 10hrs\Recent dc from [facility], PT+OT. A referral has been sent and declined. He was not accepted by the agency. A copy of HCP requested. New PCP Linnea Medley C[facility]ER Referrals have been sent to [address] choice and [facility] rehab. Ritika Meyer+ Omar Shoemaker. DP TBD by daily PT treatment. Home with VNA, STR vs Acute rehab. Patient will transport via BLS or family depending on dispo.
[2025-08-14] MEDS: 0.9 % Sodium Chloride Flush 3 ML SYRINGE IVFLUSH (21:11)
[2025-08-15] VITALS (12 sets, daily range): BP systolic 116–151; BP diastolic 55–80; PULSE 76–116; RESP 16–18; TEMP 35.9–36.6; O2SAT 97–99
--- NOTE | 2025-08-15 07:36 | P.PNIM_ITS ---
Subjective Subjective Date of Service: 08/15/25 Physical Exam 2 Vital Signs: Vital Signs: Last Vital Signs Temp 96.8 F 08/15/25 03:09 Pulse 116 H 08/15/25 06:19 Resp 18 08/15/25 03:09 BP 151/62 H 08/15/25 06:19 Pulse Ox 99 08/15/25 03:09 O2 Del Method Room Air 08/15/25 03:09 BMI result Body Mass Index 31.3 Objective Data Active Medications Acetaminophen (Acetaminophen 325 Mg Tablet) 650 mg PO Q6H PRN PRN Reason: Pain, Mild 1-3,fever,headache Albuterol/Ipratropium (Albuterol/Iprat 2.5/0.5mg 3 Ml Ampul.Neb) 3 ml INHALE Q4H PRN PRN Reason: Shortness of Breath/Wheezing Calcium Carbonate (Calcium Carbonate 750 Mg Tab.Chew) 750 mg PO Q4H PRN PRN Reason: Heartburn Enoxaparin Sodium (Enoxaparin Sodium 40 Mg/0.4 Ml Syringe) 40 mg SUBCUT Q24H [facility] Last Admin: 08/14/25 18:14 Dose: 40 mg Documented By: RG Hydroxyzine HCl (Hydroxyzine Hcl 25 Mg Tablet) 25 mg PO BID PRN PRN Reason: Anxiety Sodium Chloride (Ns) 1,000 mls @ 100 mls/hr IVCONT .Q10H [facility] Last Admin: 08/15/25 00:50 Dose: 100 mls/hr Documented By: DORCAS Magnesium Hydroxide (Milk Of Magnesia 30 Ml Oral.Susp) 30 ml PO DAILY PRN PRN Reason: Constipation Melatonin (Melatonin 3 Mg Tablet) 6 mg PO BEDTIME PRN PRN Reason: Insomnia Ondansetron HCl (Ondansetron Hcl 4 Mg/2 Ml Vial) 4 mg IVPUSH Q8H PRN PRN Reason: Nausea and Vomiting Polyethylene Glycol (Polyethylene Glycol 3350 17 Gm Powd.Pack) 17 gm PO DAILY PRN PRN Reason: Constipation Senna (Sennosides 8.6 Mg Tablet) 17.2 mg PO BEDTIME [facility] Last Admin: 08/14/25 21:07 Dose: 17.2 mg Documented By: DORCAS Sodium Chloride (0.9 % Sodium Chloride Flush 3 Ml Syringe) 3 ml IVFLUSH QSHIFT [facility] Last Admin: 08/14/25 21:11 Dose: 3 ml Documented By: DORCAS Labs 08/14/25 06:42 08/14/25 06:42 Labs: Laboratory Results - last 24 hr 08/14/25 05:57 Stl C. cayetanensis PCR Not Detected Stool Rotavirus A PCR Not Detected Stl Adenov F 40/41 PCR Not Detected Stool Astrovirus (PCR) Not Detected Stool Campylobacter PCR Not Detected Stool Cryptosporidium PCR Not Detected Stl Sh Tox Pr E STEC PCR Not Detected Stool E coli O157 PCR Not applicable Stl Enterotoxigenic E PCR Not Detected Stool EPEC (PCR) Not Detected Stool EAEC (PCR) Not Detected Stl E. histolytica PCR Not Detected Stool Giardia Lamblia PCR Not Detected Stl P. shigelloides PCR Not Detected Stool Salmonella PCR Not Detected Stool Sapovirus (PCR) Not Detected Stl Shigella/EIEC PCR Not Detected St Y.enterocolitica PCR Not Detected Stool Vibrio (PCR) Not Detected Stl Vibrio cholerae PCR Not Detected Stl Norovirus GI/GII PCR Not Detected Quality Stroke Does the patient have a stroke diagnosis?: No Reason for No Anti-thrombotic by Day Two: N/A - Med Ordered VTE Prior VTE?: No VTE Risk Level:: Medical - moderate - high VTE Device Contraindication: N/A - Device Ordered VTE Drug Contraindication: N/A - Med Ordered
--- NOTE | 2025-08-15 13:32 | PM.DS ---
DS: Providers Provider Date of Service: 08/15/25 Date of admission: 08/13/25 18:52 Date of discharge: 08/15/25 Primary care physician: Unknown Physician Consults: 08/13/25 19:51 Consult to Psychiatry Routine Consulting Provider: [facility] Psych Covering Reason for consultation: severe anxiety Has provider been notified: No 08/13/25 20:19 Consult to Cardiology Routine Consulting Provider: [facility] Cardi[facility] Special[facility] Reason for consultation: Syncope Has provider been notified: No 08/13/25 20:23 Consult to Case Management Routine Comment: Family working on alternative living arrangements 08/14/25 08:37 Consult to Cardiology Routine Consulting Provider: [facility] Reason for consultation: recurrent syncopal falls DS: Diagnosis Discharge Diagnosis (1) Anxiety: Status: Acute DS: Summary Hospital Course Hospital Course: Syncope falls-chronic Vertigo and palpitations-chronic stable likely secondary to anxiety ([facility] added this admission) AFib with recent Holter -no acute events this hospitalization HTN-chronic stable HLD chronic stable Essential tremor chronic stable 60 yo male with PMH vertigo, recent falls, palpitations, possible AFib with recent Holter monitor over the last month via [facility], developmental delay, hypertension, hyperlipidemia, essential tremor, COPD/asthma, GERD, IBS-D. anxiety is being seen in the emergency department status post an unwitnessed near syncopal or syncopal episode in patient's kitchen. This is likely in the setting of anxiety and high stress environment. Patient was seen by Cardiology and psych team and no obvious etiology found . Family is overwhelmed and would like to have a long-term care placement which they were and works about. Patient family is unable to care for him and likely looking for placement. PTOT evaluated deemed have appropriate during this hospitalization. Anxiety -psychiatry consulted-patient appears to be at his baseline with worsening anxiety-hydroxyzine initiated-psych team spoke to the mother COPD/asthma-not in exacerbation GERD/IBS -continue home med Patient is otherwise medically optimized and his presentation is deemed likely in the setting of stress DVT prophylaxis with home Eliquis This note is constructed using voice recognition software. While every effort has been made to ensure accuracy, lap winder errors may have been included. Time spent discussing smoking cessation with patient: more than 10 minutes Time Attestation Discharge Coordination Time (in mins): 35 Quality: Safe Use of Opioids Does Pt have an Active Cancer Diagnosis on the Problem List?: No Quality: Stroke Does the patient have a stroke diagnosis?: No Physical Exam Vital Signs: Vital Signs: Last Vital Signs Temp 97.3 F 08/15/25 12:00 Pulse 105 H 08/15/25 12:00 Resp 16 08/15/25 12:00 BP 124/58 L 08/15/25 12:00 Pulse Ox 97 08/15/25 12:00 O2 Del Method Room Air 08/15/25 12:00 BMI result Body Mass Index 31.3 Discharge Plan Discharge Patient Disposition: Xfer SNF Referrals: Physician,Unknown J [Primary Care Provider, Medical] - 1 Week Discharge Medications: New hydroxyzine HCl 25 mg Tablet 25 mg PO BID PRN (Reason: Anxiety) 30 Days Qty: 30 0RF Continued famotidine 40 mg tablet 40 mg PO BEDTIME Qty: 30 6RF lisinopril 5 mg tablet 5 mg PO DAILY Qty: 90 1RF metoprolol tartrate 50 mg tablet 50 mg PO BID fluticasone propion-salmeterol [Advair HFA] 230-21 mcg/actuation HFA aerosol inhaler 2 puff INHALATION BID simvastatin 10 mg tablet 10 mg PO BEDTIME albuterol sulfate 2.5 mg /3 mL (0.083 %) solution for nebulization 2.5 mg inhalation Q4-6H PRN (Reason: Shortness Of Breath Or Wheezing) albuterol sulfate [Ventolin HFA] 90 mcg/actuation HFA aerosol inhaler 2 puff inhalation Q6H PRN (Reason: Shortness Of Breath Or Wheezing) fexofenadine [Naye Allergy] 180 mg tablet 180 mg PO DAILY Discharge Orders: Discharge Order (Routine); Ordered 08/15/25 Ordered By: Felisha Beard Diet: Low salt diet Activity on Discharge: As tolerated Stand Alone Forms: Patient Portal Discharge page Print Language: [place] Care Plan Goals: Anxiety control Long-term care placement Health Concerns: Anxiety control with p.r.n. [facility] Long-term care placement Plan of Treatment: Anxiety controlled with p.r.n. [facility] Long-term care placement Assessment: See above
--- NOTE | 2025-08-15 14:14 | PM.DS ---
DS: Providers Provider Date of Service: 08/15/25 Date of admission: 08/13/25 18:52 Date of discharge: 08/15/25 Primary care physician: Unknown Physician Consults: 08/13/25 19:51 Consult to Psychiatry Routine Consulting Provider: [facility] Psych Covering Reason for consultation: severe anxiety Has provider been notified: No 08/13/25 20:19 Consult to Cardiology Routine Consulting Provider: [facility] Reason for consultation: Syncope Has provider been notified: No 08/13/25 20:23 Consult to Case Management Routine Comment: Family working on alternative living arrangements 08/14/25 08:37 Consult to Cardiology Routine Consulting Provider: [facility] Reason for consultation: recurrent syncopal falls DS: Diagnosis Discharge Diagnosis (1) Anxiety: Status: Acute DS: Summary Hospital Course Hospital Course: Syncope falls-chronic Vertigo and palpitations-chronic stable likely secondary to anxiety (Atarax added this admission) AFib with recent Holter -no acute events this hospitalization HTN-chronic stable HLD chronic stable Essential tremor chronic stable 60 yo male with PMH vertigo, recent falls, palpitations, possible AFib with recent Holter monitor over the last month via [facility], developmental delay, hypertension, hyperlipidemia, essential tremor, COPD/asthma, GERD, IBS-D. anxiety is being seen in the emergency department status post an unwitnessed near syncopal or syncopal episode in patient's kitchen. This is likely in the setting of anxiety and high stress environment. Patient was seen by Cardiology and psych team and no obvious etiology found . Hence, this has been deemed likely in the setting of anxiety. PTOT evaluated deemed have appropriate during this hospitalization. Anxiety -psychiatry consulted-patient appears to be at his baseline with worsening anxiety-hydroxyzine initiated-psych team spoke to the mother COPD/asthma-not in exacerbation GERD/IBS -continue home med DVT prophylaxis with home Eliquis This note is constructed using voice recognition software. While every effort has been made to ensure accuracy, inside trucker errors may have been included. Time spent discussing smoking cessation with patient: more than 10 minutes Time Attestation Discharge Coordination Time (in mins): 35 Quality: Safe Use of Opioids Does Pt have an Active Cancer Diagnosis on the Problem List?: No Quality: Stroke Does the patient have a stroke diagnosis?: No Physical Exam Exam: Exam: General: AOx0, no acute distress Resp: CTA bilaterally CVS: S1, S2, RRR GI: +BS, NT, no distention Skin: Warm, dry Psych-severe anxiety Vital Signs: Vital Signs: Last Vital Signs Temp 97.3 F 08/15/25 12:00 Pulse 105 H 08/15/25 12:00 Resp 16 08/15/25 12:00 BP 124/58 L 08/15/25 12:00 Pulse Ox 97 08/15/25 12:00 O2 Del Method Room Air 08/15/25 12:00 BMI result Body Mass Index 31.3 Discharge Plan Discharge Patient Disposition: Xfer [facility] Referrals: Physician,Unknown J [Primary Care Provider, Medical] - 1 Week Discharge Medications: New hydroxyzine HCl 25 mg Tablet 25 mg PO BID PRN (Reason: Anxiety) 30 Days Qty: 30 0RF Continued famotidine 40 mg tablet 40 mg PO BEDTIME Qty: 30 6RF lisinopril 5 mg tablet 5 mg PO DAILY Qty: 90 1RF metoprolol tartrate 50 mg tablet 50 mg PO BID fluticasone propion-salmeterol [Advair HFA] 230-21 mcg/actuation HFA aerosol inhaler 2 puff INHALATION BID simvastatin 10 mg tablet 10 mg PO BEDTIME albuterol sulfate 2.5 mg /3 mL (0.083 %) solution for nebulization 2.5 mg inhalation Q4-6H PRN (Reason: Shortness Of Breath Or Wheezing) albuterol sulfate [Ventolin HFA] 90 mcg/actuation HFA aerosol inhaler 2 puff inhalation Q6H PRN (Reason: Shortness Of Breath Or Wheezing) fexofenadine [Naye Allergy] 180 mg tablet 180 mg PO DAILY Discharge Orders: Discharge Order (Routine); Ordered 08/15/25 Ordered By: Felisha Beard Diet: Low salt diet Activity on Discharge: As tolerated Stand Alone Forms: Patient Portal Discharge page Print Language: [place] Care Plan Goals: Anxiety control Health Concerns: Anxiety control with p.r.n. Atarax Plan of Treatment: Anxiety controlled with p.r.n. Atarax Assessment: See above
--- NOTE | 2025-08-15 14:26 | MHC.CM.PN ---
Addendum entered by Fernanda Morales 08/15/25 16:27: Sunitha GROVE stated that the MDS will not be approved today. [facility] submitted the PASSR. follow up needed Monday. Patient and family notified that discharge will not happen due to senior services not providing approval. A HCP was documented and scanned into EMR. Original Note: A bed offer has been received from [facility]. The patient has accepted the bed offer. MDS completed and sent to [facility]. Approval is pending. Patient will transport via BLS at discharge.
--- NOTE | 2025-08-15 18:13 | HO.PM.IMPN ---
Subjective Subjective Date of Service: 08/15/25 Interval History: No medical etiology for acute presentation- currently awaiting STR bed Will resume home meds Review of Systems Review of Systems: Yes Unobtainable due to mental condition and Unobtainable due to mental status Physical Exam Exam: Exam: General: AOx0, no acute distress Resp: CTA bilaterally CVS: S1, S2, RRR GI: +BS, NT, no distention Skin: Warm, dry Psych-severe anxiety Vital Signs: Vital Signs: Last Vital Signs Temp 97.9 F 08/15/25 15:25 Pulse 96 08/15/25 15:25 Resp 18 08/15/25 15:25 BP 116/57 L 08/15/25 15:25 Pulse Ox 97 08/15/25 15:25 O2 Del Method Room Air 08/15/25 15:25 BMI result Body Mass Index 31.3 Objective Data Active Medications Acetaminophen (Acetaminophen 325 Mg Tablet) 650 mg PO Q6H PRN PRN Reason: Pain, Mild 1-3,fever,headache Albuterol/Ipratropium (Albuterol/Iprat 2.5/0.5mg 3 Ml Ampul.Neb) 3 ml INHALE Q4H PRN PRN Reason: Shortness of Breath/Wheezing Calcium Carbonate (Calcium Carbonate 750 Mg Tab.Chew) 750 mg PO Q4H PRN PRN Reason: Heartburn Enoxaparin Sodium (Enoxaparin Sodium 40 Mg/0.4 Ml Syringe) 40 mg SUBCUT Q24H [facility] Last Admin: 08/14/25 18:14 Dose: 40 mg Documented By: RG Hydroxyzine HCl (Hydroxyzine Hcl 25 Mg Tablet) 25 mg PO BID PRN PRN Reason: Anxiety Sodium Chloride (Ns) 1,000 mls @ 100 mls/hr IVCONT .Q10H [facility] Last Admin: 08/15/25 12:30 Dose: 100 mls/hr Documented By: RG Magnesium Hydroxide (Milk Of Magnesia 30 Ml Oral.Susp) 30 ml PO DAILY PRN PRN Reason: Constipation Melatonin (Melatonin 3 Mg Tablet) 6 mg PO BEDTIME PRN PRN Reason: Insomnia Ondansetron HCl (Ondansetron Hcl 4 Mg/2 Ml Vial) 4 mg IVPUSH Q8H PRN PRN Reason: Nausea and Vomiting Polyethylene Glycol (Polyethylene Glycol 3350 17 Gm Powd.Pack) 17 gm PO DAILY PRN PRN Reason: Constipation Senna (Sennosides 8.6 Mg Tablet) 17.2 mg PO BEDTIME [facility] Last Admin: 08/14/25 21:07 Dose: 17.2 mg Documented By: DORCAS Sodium Chloride (0.9 % Sodium Chloride Flush 3 Ml Syringe) 3 ml IVFLUSH QSHIFT [facility] Last Admin: 08/15/25 17:35 Dose: Not Given Documented By: RG Non-Admin Reason: IV Running Labs 08/14/25 06:42 08/14/25 06:42 Assessment and Plan (1) Syncope and collapse: Status: Acute Plan 60 yo male with PMH vertigo, recent falls, palpitations, possible AFib with recent Holter monitor over the last month via [facility], developmental delay, hypertension, hyperlipidemia, essential tremor, COPD/asthma, GERD, IBS-D. anxiety is being seen in the emergency department status post an unwitnessed near syncopal or syncopal episode in patient's kitchen deemed in the setting of anxiety. Syncope falls-chronic Vertigo and palpitations-chronic stable likely secondary to anxiety (Atarax added this admission) AFib with recent Holter -no acute events this hospitalization HTN-chronic stable HLD chronic stable Essential tremor chronic stable 60 yo male with PMH vertigo, recent falls, palpitations, possible AFib with recent Holter monitor over the last month via [facility], developmental delay, hypertension, hyperlipidemia, essential tremor, COPD/asthma, GERD, IBS-D. anxiety is being seen in the emergency department status post an unwitnessed near syncopal or syncopal episode in patient's kitchen. This is likely in the setting of anxiety and high stress environment. Patient was seen by Cardiology and psych team and no obvious etiology found . Hence, this has been deemed likely in the setting of anxiety for which Atarax has been initiated. PTOT evaluated deemed have appropriate during this hospitalization. Anxiety -psychiatry consulted-patient appears to be at his baseline with worsening anxiety-hydroxyzine initiated this admission-psych team spoke to the mother COPD/asthma-not in exacerbation GERD/IBS -continue home med DVT prophylaxis with home Eliquis This note is constructed using voice recognition software. While every effort has been made to ensure accuracy, warehouse production worker errors may have been included. Quality Stroke Does the patient have a stroke diagnosis?: No Reason for No Anti-thrombotic by Day Two: N/A - Med Ordered VTE Prior VTE?: No VTE Risk Level:: Medical - moderate - high VTE Device Contraindication: N/A - Device Ordered VTE Drug Contraindication: N/A - Med Ordered
[2025-08-16] VITALS (12 sets, daily range): BP systolic 113–147; BP diastolic 57–82; PULSE 70–89; RESP 16–18; TEMP 36.1–36.4; O2SAT 96–99
--- NOTE | 2025-08-16 07:27 | P.PNIM_ITS ---
Subjective Subjective Date of Service: 08/16/25 Interval History: No medical etiology for acute presentation- currently awaiting STR bed Will resume home meds Review of Systems Review of Systems: Yes Unobtainable due to mental condition and Unobtainable due to mental status Physical Exam 2 Exam: Exam: General: AOx0, no acute distress, but has difficulty expressing 2/2 anxiety baseline and Intellectual disability Resp: CTA bilaterally CVS: S1, S2, RRR GI: +BS, NT, no distention Skin: Warm, dry Psych-severe anxiety Vital Signs: Vital Signs: Last Vital Signs Temp 97.0 F 08/16/25 03:13 Pulse 89 08/16/25 06:40 Resp 16 08/16/25 03:13 BP 131/74 08/16/25 06:40 Pulse Ox 98 08/16/25 03:13 O2 Del Method Room Air 08/16/25 03:13 BMI result Body Mass Index 31.3 Objective Data Active Medications Acetaminophen (Acetaminophen 325 Mg Tablet) 650 mg PO Q6H PRN PRN Reason: Pain, Mild 1-3,fever,headache Albuterol Sulfate (Albuterol Sulfate 90 Mcg 8 Gm Inhaler) 2 puff INHALE Q6H PRN PRN Reason: Shortness Of Breath Or Wheezing Albuterol/Ipratropium (Albuterol/Iprat 2.5/0.5mg 3 Ml Ampul.Neb) 3 ml INHALE Q4H PRN PRN Reason: Shortness of Breath/Wheezing Atorvastatin Calcium (Atorvastatin Calcium 10 Mg Tablet) 10 mg PO BEDTIME [facility] Last Admin: 08/15/25 20:02 Dose: 10 mg Documented By: LORI Calcium Carbonate (Calcium Carbonate 750 Mg Tab.Chew) 750 mg PO Q4H PRN PRN Reason: Heartburn Enoxaparin Sodium (Enoxaparin Sodium 40 Mg/0.4 Ml Syringe) 40 mg SUBCUT Q24H [facility] Last Admin: 08/15/25 20:02 Dose: 40 mg Documented By: LORI Famotidine (Famotidine 20 Mg Tablet) 40 mg PO BEDTIME [facility] Last Admin: 08/15/25 20:02 Dose: 40 mg Documented By: LORI Fluticasone/Vilanterol (Fluticasone/Vilanterol 200/25 Blst.W.Dev) 1 puff INHALE RDAILY [facility] Hydroxyzine HCl (Hydroxyzine Hcl 25 Mg Tablet) 25 mg PO BID PRN PRN Reason: Anxiety Lisinopril (Lisinopril 5 Mg Tablet) 5 mg PO DAILY [facility]; Protocol Last Admin: 08/15/25 20:02 Dose: 5 mg Documented By: LORI Loratadine (Loratadine 10 Mg Tablet) 10 mg PO DAILY [facility] Last Admin: 08/15/25 20:04 Dose: Not Given Documented By: LORI Non-Admin Reason: Patient Refused Magnesium Hydroxide (Milk Of Magnesia 30 Ml Oral.Susp) 30 ml PO DAILY PRN PRN Reason: Constipation Melatonin (Melatonin 3 Mg Tablet) 6 mg PO BEDTIME PRN PRN Reason: Insomnia Metoprolol Tartrate (Metoprolol Tartrate 50 Mg Tablet) 50 mg PO BID [facility]; Protocol Last Admin: 08/15/25 20:01 Dose: 50 mg Documented By: LORI Ondansetron HCl (Ondansetron Hcl 4 Mg/2 Ml Vial) 4 mg IVPUSH Q8H PRN PRN Reason: Nausea and Vomiting Polyethylene Glycol (Polyethylene Glycol 3350 17 Gm Powd.Pack) 17 gm PO DAILY PRN PRN Reason: Constipation Senna (Sennosides 8.6 Mg Tablet) 17.2 mg PO BEDTIME [facility] Last Admin: 08/15/25 20:01 Dose: 17.2 mg Documented By: LORI Sodium Chloride (0.9 % Sodium Chloride Flush 3 Ml Syringe) 3 ml IVFLUSH QSHIFT [facility] Last Admin: 08/15/25 23:38 Dose: Not Given Documented By: LORI Non-Admin Reason: Previously Administered Labs 08/14/25 06:42 08/14/25 06:42 Assessment and Plan (1) Syncope and collapse: Status: Acute Plan 60 yo male with PMH vertigo, recent falls, palpitations, possible AFib with recent Holter monitor over the last month via [facility], developmental delay, hypertension, hyperlipidemia, essential tremor, COPD/asthma, GERD, IBS-D. anxiety is being seen in the emergency department status post an unwitnessed near syncopal or syncopal episode in patient's kitchen deemed in the setting of anxiety. Syncope falls-chronic Vertigo and palpitations-chronic stable likely secondary to anxiety (Atarax added this admission) AFib with recent Holter -no acute events this hospitalization HTN-chronic stable HLD chronic stable Essential tremor chronic stable 60 yo male with PMH vertigo, recent falls, palpitations, possible AFib with recent Holter monitor over the last month via [facility], developmental delay, hypertension, hyperlipidemia, essential tremor, COPD/asthma, GERD, IBS-D. anxiety is being seen in the emergency department status post an unwitnessed near syncopal or syncopal episode in patient's kitchen. This is likely in the setting of anxiety and high stress environment. Patient was seen by Cardiology and psych team and no obvious etiology found . Hence, this has been deemed likely in the setting of anxiety for which Atarax has been initiated. PTOT evaluated deemed have appropriate during this hospitalization. Currently awaiting STR placement Anxiety -psychiatry consulted-patient appears to be at his baseline with worsening anxiety-hydroxyzine initiated this admission-psych team spoke to the mother COPD/asthma-not in exacerbation GERD/IBS -continue home med DVT prophylaxis with home Eliquis This note is constructed using voice recognition software. While every effort has been made to ensure accuracy, administrative volunteer errors may have been included. Quality Stroke Does the patient have a stroke diagnosis?: No Reason for No Anti-thrombotic by Day Two: N/A - Med Ordered VTE Prior VTE?: No VTE Risk Level:: Medical - moderate - high VTE Device Contraindication: N/A - Device Ordered VTE Drug Contraindication: N/A - Med Ordered
[2025-08-16] MEDS: Fluticasone/Vilanterol 200/25 BLST.W.DEV 1 PUFF INHALE (07:58)
[2025-08-16] MEDS: 0.9 % Sodium Chloride Flush 3 ML SYRINGE IVFLUSH ×3 (10:31→19:51)
[2025-08-17 03:31] VITALS: BP 144/71; PULSE 68; RESP 18; TEMP 36.1; O2SAT 96
--- NOTE | 2025-08-17 06:55 | HO.PM.IMPN ---
Subjective Subjective Date of Service: 08/17/25 Interval History: No medical etiology for acute presentation- currently awaiting STR bed Will resume home meds Review of Systems Review of Systems: Yes Unobtainable due to mental condition and Unobtainable due to mental status Physical Exam Exam: Exam: General: AOx0, no acute distress, but has difficulty expressing 2/2 anxiety baseline and Intellectual disability Resp: CTA bilaterally CVS: S1, S2, RRR GI: +BS, NT, no distention Skin: Warm, dry Psych-severe anxiety Vital Signs: Vital Signs: Last Vital Signs Temp 96.9 F 08/17/25 03:31 Pulse 68 08/17/25 03:31 Resp 18 08/17/25 03:31 BP 144/71 H 08/17/25 03:31 Pulse Ox 96 08/17/25 03:31 O2 Del Method Room Air 08/17/25 03:31 BMI result Body Mass Index 31.3 Objective Data Active Medications Acetaminophen (Acetaminophen 325 Mg Tablet) 650 mg PO Q6H PRN PRN Reason: Pain, Mild 1-3,fever,headache Albuterol Sulfate (Albuterol Sulfate 90 Mcg 8 Gm Inhaler) 2 puff INHALE Q6H PRN PRN Reason: Shortness Of Breath Or Wheezing Albuterol/Ipratropium (Albuterol/Iprat 2.5/0.5mg 3 Ml Ampul.Neb) 3 ml INHALE Q4H PRN PRN Reason: Shortness of Breath/Wheezing Atorvastatin Calcium (Atorvastatin Calcium 10 Mg Tablet) 10 mg PO BEDTIME [facility] Last Admin: 08/16/25 19:45 Dose: 10 mg Documented By: OLE Calcium Carbonate (Calcium Carbonate 750 Mg Tab.Chew) 750 mg PO Q4H PRN PRN Reason: Heartburn Enoxaparin Sodium (Enoxaparin Sodium 40 Mg/0.4 Ml Syringe) 40 mg SUBCUT Q24H [facility] Last Admin: 08/16/25 18:20 Dose: 40 mg Documented By: CESAR Famotidine (Famotidine 20 Mg Tablet) 40 mg PO BEDTIME [facility] Last Admin: 08/16/25 19:45 Dose: 40 mg Documented By: OLE Fluticasone/Vilanterol (Fluticasone/Vilanterol 200/25 Blst.W.Dev) 1 puff INHALE RDAILY [facility] Last Admin: 08/16/25 07:58 Dose: 1 puff Documented By: CHRISSY Hydroxyzine HCl (Hydroxyzine Hcl 25 Mg Tablet) 25 mg PO BID PRN PRN Reason: Anxiety Last Admin: 08/16/25 19:45 Dose: 25 mg Documented By: OLE Lisinopril (Lisinopril 5 Mg Tablet) 5 mg PO DAILY [facility]; Protocol Last Admin: 08/16/25 10:32 Dose: 5 mg Documented By: THEO Loratadine (Loratadine 10 Mg Tablet) 10 mg PO DAILY [facility] Last Admin: 08/16/25 10:36 Dose: 10 mg Documented By: THEO Magnesium Hydroxide (Milk Of Magnesia 30 Ml Oral.Susp) 30 ml PO DAILY PRN PRN Reason: Constipation Melatonin (Melatonin 3 Mg Tablet) 6 mg PO BEDTIME PRN PRN Reason: Insomnia Metoprolol Tartrate (Metoprolol Tartrate 50 Mg Tablet) 50 mg PO BID [facility]; Protocol Last Admin: 08/16/25 19:44 Dose: 50 mg Documented By: OLE Ondansetron HCl (Ondansetron Hcl 4 Mg/2 Ml Vial) 4 mg IVPUSH Q8H PRN PRN Reason: Nausea and Vomiting Polyethylene Glycol (Polyethylene Glycol 3350 17 Gm Powd.Pack) 17 gm PO DAILY PRN PRN Reason: Constipation Senna (Sennosides 8.6 Mg Tablet) 17.2 mg PO BEDTIME [facility] Last Admin: 08/16/25 19:51 Dose: Not Given Documented By: OLE Non-Admin Reason: Patient Refused Sodium Chloride (0.9 % Sodium Chloride Flush 3 Ml Syringe) 3 ml IVFLUSH QSHIFT [facility] Last Admin: 08/16/25 19:51 Dose: 3 ml Documented By: OLE Labs 08/14/25 06:42 08/14/25 06:42 Assessment and Plan (1) Syncope and collapse: Status: Acute Plan 60 yo male with PMH vertigo, recent falls, palpitations, possible AFib with recent Holter monitor over the last month via [facility], developmental delay, hypertension, hyperlipidemia, essential tremor, COPD/asthma, GERD, IBS-D. anxiety is being seen in the emergency department status post an unwitnessed near syncopal or syncopal episode in patient's kitchen deemed in the setting of anxiety. Syncope falls-chronic - stable Vertigo and palpitations-chronic stable likely secondary to anxiety (Atarax added this admission) with good effect 60 yo male with PMH vertigo, recent falls, palpitations, possible AFib with recent Holter monitor over the last month via [facility], developmental delay, hypertension, hyperlipidemia, essential tremor, COPD/asthma, GERD, IBS-D. anxiety is being seen in the emergency department status post an unwitnessed near syncopal or syncopal episode in patient's kitchen. This is likely in the setting of anxiety and high stress environment. Patient was seen by Cardiology and psych team and no obvious etiology found . Hence, this has been deemed likely in the setting of anxiety for which Atarax has been initiated. PTOT evaluated deemed have appropriate during this hospitalization. AFib with recent Holter -no arrhythmias hospitalization HTN-chronic stable HLD chronic stable Essential tremor chronic stable Currently awaiting STR placement Anxiety -psychiatry consulted-patient appears to be at his baseline with worsening anxiety-hydroxyzine initiated this admission-psych team spoke to the mother COPD/asthma-not in exacerbation GERD/IBS -continue home med DVT prophylaxis with home Eliquis This note is constructed using voice recognition software. While every effort has been made to ensure accuracy, lathe winder errors may have been included. Quality Stroke Does the patient have a stroke diagnosis?: No Reason for No Anti-thrombotic by Day Two: N/A - Med Ordered VTE Prior VTE?: No VTE Risk Level:: Medical - moderate - high VTE Device Contraindication: N/A - Device Ordered VTE Drug Contraindication: N/A - Med Ordered
[2025-08-17 08:00] VITALS: BP 142/77; PULSE 67; RESP 18; TEMP 36; O2SAT 96
[2025-08-17 08:17] VITALS: PULSE 77; RESP 18; O2SAT 98
[2025-08-17] MEDS: Fluticasone/Vilanterol 200/25 BLST.W.DEV 1 PUFF INHALE (08:17)
[2025-08-17] MEDS: 0.9 % Sodium Chloride Flush 3 ML SYRINGE IVFLUSH ×3 (09:05→20:25)
[2025-08-17 15:45] VITALS: BP 110/60; PULSE 72; RESP 18; TEMP 36.3; O2SAT 97
[2025-08-17 19:11] VITALS: BP 117/63; PULSE 81; RESP 17; TEMP 36.1; O2SAT 97
[2025-08-17 20:20] VITALS: BP 116/68; PULSE 74
--- NOTE | 2025-08-17 22:40 | P.EN_ITS ---
Event Note Date of Service: 08/17/25 Event Note: Notified by nurse that patient came from [facility] and had a male PureWick. When PCT went to change PureWick patient was reporting significant penile pain. When foreskin was retracted there is a large circumferential white plaque-like lesion just below the glans of the penis. The patient is reporting significant discomfort with this. This appears fungal. We will start nystatin/triamcinolone cream twice a day, try to keep area clean and dry. Time Spent With Patient Time: Total time managing care of this patient today ____ minutes.
[2025-08-18 03:24] VITALS: BP 136/70; PULSE 62; RESP 18; TEMP 36.8; O2SAT 96
--- NOTE | 2025-08-18 07:21 | HO.PM.IMPN ---
Subjective Subjective Date of Service: 08/18/25 Interval History: Patient awaiting placement Plan remains the same Physical Exam Exam: Exam: General: AOx0, no acute distress, but has difficulty expressing 2/2 anxiety baseline and Intellectual disability Resp: CTA bilaterally CVS: S1, S2, RRR GI: +BS, NT, no distention Skin: Warm, dry Psych-severe anxiety Vital Signs: Vital Signs: Last Vital Signs Temp 98.2 F 08/18/25 03:24 Pulse 62 08/18/25 03:24 Resp 18 08/18/25 03:24 BP 136/70 08/18/25 03:24 Pulse Ox 96 08/18/25 03:24 O2 Del Method Room Air 08/18/25 03:24 BMI result Body Mass Index 31.3 Objective Data Active Medications Acetaminophen (Acetaminophen 325 Mg Tablet) 650 mg PO Q6H PRN PRN Reason: Pain, Mild 1-3,fever,headache Albuterol Sulfate (Albuterol Sulfate 90 Mcg 8 Gm Inhaler) 2 puff INHALE Q6H PRN PRN Reason: Shortness Of Breath Or Wheezing Albuterol/Ipratropium (Albuterol/Iprat 2.5/0.5mg 3 Ml Ampul.Neb) 3 ml INHALE Q4H PRN PRN Reason: Shortness of Breath/Wheezing Atorvastatin Calcium (Atorvastatin Calcium 10 Mg Tablet) 10 mg PO BEDTIME [facility] Last Admin: 08/17/25 20:22 Dose: 10 mg Documented By: OLE Calcium Carbonate (Calcium Carbonate 750 Mg Tab.Chew) 750 mg PO Q4H PRN PRN Reason: Heartburn Enoxaparin Sodium (Enoxaparin Sodium 40 Mg/0.4 Ml Syringe) 40 mg SUBCUT Q24H [facility] Last Admin: 08/17/25 18:31 Dose: 40 mg Documented By: CESAR Famotidine (Famotidine 20 Mg Tablet) 40 mg PO BEDTIME [facility] Last Admin: 08/17/25 20:22 Dose: 40 mg Documented By: OLE Fluticasone/Vilanterol (Fluticasone/Vilanterol 200/25 Blst.W.Dev) 1 puff INHALE RDAILY [facility] Last Admin: 08/17/25 08:17 Dose: 1 puff Documented By: CHRISSY Hydroxyzine HCl (Hydroxyzine Hcl 25 Mg Tablet) 25 mg PO BID PRN PRN Reason: Anxiety Last Admin: 08/17/25 20:25 Dose: 25 mg Documented By: OLE Lisinopril (Lisinopril 5 Mg Tablet) 5 mg PO DAILY [facility]; Protocol Last Admin: 08/17/25 09:05 Dose: 5 mg Documented By: CESAR Loratadine (Loratadine 10 Mg Tablet) 10 mg PO DAILY [facility] Last Admin: 08/17/25 09:05 Dose: 10 mg Documented By: CESAR Magnesium Hydroxide (Milk Of Magnesia 30 Ml Oral.Susp) 30 ml PO DAILY PRN PRN Reason: Constipation Melatonin (Melatonin 3 Mg Tablet) 6 mg PO BEDTIME PRN PRN Reason: Insomnia Metoprolol Tartrate (Metoprolol Tartrate 50 Mg Tablet) 50 mg PO BID [facility]; Protocol Last Admin: 08/17/25 20:20 Dose: 50 mg Documented By: OLE Nystatin/Triamcinolone Acetonide (Nystatin/Triamcinolone Cream 15 Gm Tube) 1 appl TOPICAL BID [facility]; Protocol Last Admin: 08/17/25 23:05 Dose: 1 appl Documented By: OLE Ondansetron HCl (Ondansetron Hcl 4 Mg/2 Ml Vial) 4 mg IVPUSH Q8H PRN PRN Reason: Nausea and Vomiting Polyethylene Glycol (Polyethylene Glycol 3350 17 Gm Powd.Pack) 17 gm PO DAILY PRN PRN Reason: Constipation Senna (Sennosides 8.6 Mg Tablet) 17.2 mg PO BEDTIME [facility] Last Admin: 08/17/25 20:22 Dose: 17.2 mg Documented By: OLE Sodium Chloride (0.9 % Sodium Chloride Flush 3 Ml Syringe) 3 ml IVFLUSH QSHIFT [facility] Last Admin: 08/17/25 20:25 Dose: 3 ml Documented By: OLE Labs 08/14/25 06:42 08/14/25 06:42 Assessment and Plan (1) Syncope and collapse: Status: Acute Plan 60 yo male with PMH vertigo, recent falls, palpitations, possible AFib with recent Holter monitor over the last month via [facility], developmental delay, hypertension, hyperlipidemia, essential tremor, COPD/asthma, GERD, IBS-D. anxiety is being seen in the emergency department status post an unwitnessed near syncopal or syncopal episode in patient's kitchen deemed in the setting of anxiety. Syncope falls-chronic - stable Vertigo and palpitations-chronic stable likely secondary to anxiety (Atarax added this admission) with good effect 60 yo male with PMH vertigo, recent falls, palpitations, possible AFib with recent Holter monitor over the last month via [facility], developmental delay, hypertension, hyperlipidemia, essential tremor, COPD/asthma, GERD, IBS-D. anxiety is being seen in the emergency department status post an unwitnessed near syncopal or syncopal episode in patient's kitchen. This is likely in the setting of anxiety and high stress environment. Patient was seen by Cardiology and psych team and no obvious etiology found . Hence, this has been deemed likely in the setting of anxiety for which Atarax has been initiated. PTOT evaluated deemed have appropriate during this hospitalization. AFib with recent Holter -no arrhythmias hospitalization HTN-chronic stable HLD chronic stable Essential tremor chronic stable Currently awaiting STR placement Anxiety -psychiatry consulted-patient appears to be at his baseline with worsening anxiety-hydroxyzine initiated this admission-psych team spoke to the mother COPD/asthma-not in exacerbation GERD/IBS -continue home med DVT prophylaxis with home Eliquis This note is constructed using voice recognition software. While every effort has been made to ensure accuracy, inside b2b sales errors may have been included. Quality Stroke Does the patient have a stroke diagnosis?: No Reason for No Anti-thrombotic by Day Two: N/A - Med Ordered VTE Prior VTE?: No VTE Risk Level:: Medical - moderate - high VTE Device Contraindication: N/A - Device Ordered VTE Drug Contraindication: N/A - Med Ordered
[2025-08-18 07:33] VITALS: BP 140/71; PULSE 69; RESP 18; TEMP 36; O2SAT 98
[2025-08-18] MEDS: Fluticasone/Vilanterol 200/25 BLST.W.DEV 1 PUFF INHALE (08:12)
[2025-08-18 08:14] VITALS: PULSE 78; RESP 20; O2SAT 99
[2025-08-18] MEDS: 0.9 % Sodium Chloride Flush 3 ML SYRINGE IVFLUSH (08:39)
--- NOTE | 2025-08-18 12:11 | PM.DS ---
DS: Providers Provider Date of Service: 08/18/25 Date of admission: 08/16/25 07:48 Date of discharge: 08/18/25 Primary care physician: Linnea Medley NP Consults: 08/13/25 19:51 Consult to Psychiatry Routine Consulting Provider: [facility] Psych Covering Reason for consultation: severe anxiety Has provider been notified: No 08/13/25 20:19 Consult to Cardiology Routine Consulting Provider: [facility] Reason for consultation: Syncope Has provider been notified: No 08/13/25 20:23 Consult to Case Management Routine Comment: Family working on alternative living arrangements 08/14/25 08:37 Consult to Cardiology Routine Consulting Provider: [facility] Reason for consultation: recurrent syncopal falls DS: Diagnosis Discharge Diagnosis (1) Syncope and collapse: Status: Acute DS: Summary Hospital Course Hospital Course: Syncope falls-chronic Vertigo and palpitations-chronic stable likely secondary to anxiety (Atarax added this admission) AFib with recent Holter -no acute events this hospitalization HTN-chronic stable HLD chronic stable Essential tremor chronic stable 60 yo male with PMH vertigo, recent falls, palpitations, possible AFib with recent Holter monitor over the last [facility], developmental delay, hypertension, hyperlipidemia, essential tremor, COPD/asthma, GERD, IBS-D. anxiety is being seen in the emergency department status post an unwitnessed near syncopal or syncopal episode in patient's kitchen. This is likely in the setting of anxiety and high stress environment. Patient was seen by Cardiology and psych team and no obvious etiology found . Hence, this has been deemed likely in the setting of anxiety. PTOT evaluated deemed have appropriate during this hospitalization. Expected stay at the rehab is expected to be less than 30 days. Anxiety -psychiatry consulted-patient appears to be at his baseline with worsening anxiety-hydroxyzine initiated with good effect COPD/asthma-not in exacerbation GERD/IBS -continue home med DVT prophylaxis with home Eliquis This note is constructed using voice recognition software. While every effort has been made to ensure accuracy, band and cuff cutter errors may have been included. Patient medically optimized-expect that his rehab stay will be less than 30 days after which I suppose he will be able to return to his primary residence. Time spent discussing smoking cessation with patient: more than 10 minutes Status at Discharge Functional status at discharge: uses cane/walker Time Attestation Discharge Coordination Time (in mins): 35 Quality: Safe Use of Opioids Does Pt have an Active Cancer Diagnosis on the Problem List?: No Quality: Stroke Does the patient have a stroke diagnosis?: No Physical Exam Vital Signs: Vital Signs: Last Vital Signs Temp 96.8 F 08/18/25 07:33 Pulse 78 08/18/25 08:14 Resp 20 08/18/25 08:14 BP 140/71 H 08/18/25 07:33 Pulse Ox 98 08/18/25 07:33 O2 Del Method Room Air 08/18/25 07:33 BMI result Body Mass Index 31.3 Discharge Plan Discharge Anticipated Discharge Date/Time: 08/18/25 12:09 Patient Disposition: er [facility] Discharge Diagnosis: Fall secondary to anxiety with initiation of Atarax, resolved Referrals: [facility] [Other] - 1 Week [facility] [Outside] - 1 Week Discharge Medications: New hydroxyzine HCl 25 mg Tablet 25 mg PO BID PRN (Reason: Anxiety) 30 Days Qty: 30 0RF Continued famotidine 40 mg tablet 40 mg PO BEDTIME Qty: 30 6RF lisinopril 5 mg tablet 5 mg PO DAILY Qty: 90 1RF metoprolol tartrate 50 mg tablet 50 mg PO BID fluticasone propion-salmeterol [Advair HFA] 230-21 mcg/actuation HFA aerosol inhaler 2 puff INHALATION BID simvastatin 10 mg tablet 10 mg PO BEDTIME albuterol sulfate 2.5 mg /3 mL (0.083 %) solution for nebulization 2.5 mg inhalation Q4-6H PRN (Reason: Shortness Of Breath Or Wheezing) albuterol sulfate [Ventolin HFA] 90 mcg/actuation HFA aerosol inhaler 2 puff inhalation Q6H PRN (Reason: Shortness Of Breath Or Wheezing) fexofenadine [Naye Allergy] 180 mg tablet 180 mg PO DAILY Discharge Orders: Discharge Order (Routine); Ordered 08/18/25 Ordered By: Felisha Beard Diet: Low salt diet Activity on Discharge: As tolerated Stand Alone Forms: Patient Portal Discharge page Print Language: Greek Care Plan Goals: Anxiety control Health Concerns: Anxiety control with p.r.n. Atarax Plan of Treatment: Anxiety controlled with p.r.n. Atarax Assessment: See above
--- NOTE | 2025-08-18 14:11 | MHC.CM.PN ---
ACP AND DDS APPROVAL OBTAINED PT WILL DC TO [facility] TODAY AT 1530 HOURS VIA BLS MOTHER AT BEDSIDE AND AWARE
[2025-08-18 15:39] VITALS: BP 125/67; PULSE 76; RESP 18; TEMP 36.1; O2SAT 98
--- NOTE | 2025-08-18 17:23 | PC.NURSE ---
1530 Report received from daytime RN, February. Per report IV removed, report provided to [facility] and EMS is at bedside. Greeted patient who is Alert and oriented x4 verbalizing willingness to be discharged. Mother at bedside and reports patient is at baseline mentation and verbalized patient is ready for discharge. VSS. Updated report provided to EMS.
== END 2025-08-18 15:30 | disposition skilled nursing facility (03) | DRG 312 ==
LOC: HO.ED 17:18 → HO.EDOVER 18:57 → HO.IMC 19:23 → HO.S3 08-18 08:57 → HO.IMC 08-18 09:07
PROVIDERS: Nurse Practitioner Family; Admitting Provider Internal Medicine; Emergency Provider Emergency Medicine; PCP Nurse Practitioner Family; Visit Provider Student in an Organized Health Care Education/Training Program
DX: R55 Syncope and collapse (principal); R62.50 Unspecified lack of expected normal physiological development in childhood; F41.9 Anxiety disorder, unspecified; R29.6 Repeated falls; K58.0 Irritable bowel syndrome with diarrhea; I10 Essential (primary) hypertension; M50.322 Other cervical disc degeneration at C5-C6 level; B36.9 Superficial mycosis, unspecified; M51.34 Other intervertebral disc degeneration, thoracic region; E78.5 Hyperlipidemia, unspecified; J44.9 Chronic obstructive pulmonary disease, unspecified; K21.9 Gastro-esophageal reflux disease without esophagitis; Z79.51 Long term (current) use of inhaled steroids; Z79.899 Other long term (current) drug therapy
CPT/HCPCS: 36415; 70450; 71045; 72125; 74176; 80048; 80053; 80061; 81001; 82272; 83690; 83735; 83880; 84439; 84443; 84484; 85025; 87507; 93005; 93880; 94640; 97110; 97162; 97166; 99221; 99285; J1650; Q9957

== ENCOUNTER → 2025-08-13 14:20 | Outpatient (BNV) | payer MEDICARE, MEDICAID, SELFPAY | PROVIDERS: Admitting Provider Internal Medicine; Emergency Provider Emergency Medicine; Visit Provider Internal Medicine | DX: R94.31 Abnormal electrocardiogram [ECG] [EKG] (principal); R55 Syncope and collapse | CPT/HCPCS: 93010 ==

== ENCOUNTER → 2025-08-13 15:15 | Outpatient (BNV) | payer MEDICARE, MEDICAID, SELFPAY | PROVIDERS: Emergency Provider Emergency Medicine; Visit Provider Radiology Diagnostic Radiology | DX: R55 Syncope and collapse (principal); W19.XXXA Unspecified fall, initial encounter | CPT/HCPCS: 70450; 72125; 93880 ==

== ENCOUNTER → 2025-08-13 18:52 | Outpatient (BNV) | payer MEDICARE, MEDICAID, SELFPAY | PROVIDERS: Admitting Provider Internal Medicine; Emergency Provider Emergency Medicine; Visit Provider Nurse Practitioner Family | DX: F41.9 Anxiety disorder, unspecified (principal) | CPT/HCPCS: 99222 ==

== ENCOUNTER → 2025-08-13 18:52 | Outpatient (BNV) | payer MEDICARE, MEDICAID, SELFPAY | PROVIDERS: Admitting Provider Internal Medicine; Emergency Provider Emergency Medicine; Visit Provider Internal Medicine | DX: R55 Syncope and collapse (principal) | CPT/HCPCS: 99223 ==

== ENCOUNTER → 2025-08-13 18:52 | Outpatient (BNV) | payer MEDICARE, MEDICAID, SELFPAY | PROVIDERS: Admitting Provider Internal Medicine; Emergency Provider Emergency Medicine; Visit Provider Nurse Practitioner Family | DX: R55 Syncope and collapse (principal) | CPT/HCPCS: 99223; 99232; 99239; 99499 ==